=== PATIENT | male | born 1935 | race Caucasian/White ===

== ENCOUNTER 2018-11-09 18:52 | Inpatient (IN) | payer OTHER ==
[~2018-11-09] VITALS: Ht 177.8 cm; Wt 126.3 kg
[2018-11-09 18:52] VITALS: BP 97/52
[~2018-11-09 18:52] MED LIST: ASPIRIN 81 MG T81 MG NG; AVALIDE 150-121 EACH PO; CARDURA4 MG PO; COMBIGAN EYE DR10 ML OPHTHALMIC; NORCO 5-325 TA1 EACH PO; PERCOCET 7.5-51 EACH PO; SIMVASTATIN40 MG PO
[2018-11-09 19:18] LABS: URINE BLOOD NEGATIVE (Negative); URINE CLARITY CLEAR; URINE COLOR YELLOW; URINE GLUCOSE-RANDOM* NEGATIVE (Negative); URINE KETONES TRACE (Negative); URINE LEUKOCYTES-REFLEX NEGATIVE (Negative); URINE NITRITE-REFLEX NEGATIVE (Negative); URINE PROTEIN (DIPSTICK) 2+ (Negative); URINE SPECIFIC GRAVITY 1.025 (1.005-1.035); URINE UROBILINOGEN 0.2 E.U./dl (0.2-1.0)
[2018-11-09 19:20] LABS: ICTOTEST (BILI CONFIRMATORY) Negative (Negative); URINE BILIRUBIN NEGATIVE (Negative)
[2018-11-09 19:32] LABS: BACTERIA-REFLEX None Seen /HPF (None Seen); CRYSTALS None Seen /LPF (None Seen); HYALINE CASTS >10 Many /LPF (None Seen); MUCUS >6 Heavy strn/LPF (None Seen); SQUAMOUS None Seen /LPF (0-3); URINE RBC None Seen /HPF (0-2); URINE WBC-REFLEX 0-5 Rare /HPF (0-5)
[2018-11-09 19:41] LABS: CALCIUM 9.9 mg/dL (8.5-10.1); CREATININE 1.8 mg/dL (0.7-1.3); POTASSIUM 3.9 mmol/L (3.5-5.1)
[2018-11-09 19:47] LABS: ALBUMIN 3.9 g/dL (3.4-5.0); TOTAL BILIRUBIN 2.4 mg/dL (<0.1-1.0); TOTAL PROTEIN 8.1 g/dL (6.4-8.2)
[2018-11-09 19:58] LABS: HEMOGLOBIN 19.1 gm/dL (14.0-18.0); MCH 31.7 pg (26.0-34.0); MCV 93.1 fL (80.0-100.0); PLATELET COUNT 203 thou/uL (150-400); RBC 6.02 mil/uL (4.50-6.00); WBC 7.8 thou/uL (4.0-11.0)
[2018-11-09 20:25] LABS: ABSOLUTE NEUTROPHILS 6.2 thou/uL (1.4-8.2); ANISOCYTOSIS 1+; POLYCHROMASIA OCCASIONAL
--- NOTE | 2018-11-09 21:03 | NUR ---
PT'S SON HEADING HOME. CONTACT INFO: C: [phone] H: [phone]
[2018-11-09 23:45] VITALS: BP 164/78
[2018-11-10] VITALS: BP 193/69; BP 493/69
[2018-11-10 04:49] VITALS: BP 172/22
[2018-11-10 07:15] VITALS: BP 133/65
--- NOTE | 2018-11-10 07:32 | EKG ---
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: ELAINE : 1935 Requested By: Marko Pereira Order Number: [id number] MD: Guido Humphrey Measurements Intervals [place] Rate: 111 P: 64 NV: 196 QRS: 102 QRSD: 95 T: 18 QT: 383 QTc: 521 Interpretive Statements Sinus tachycardia Multiple premature complexes, vent & supraven Poor R wave progression Compared to ECG 06/17/2000 21:27:08 ventricular and supraventricular complexes are now present Electronically Signed On 11-10-2018 7:32:32 CDT by Guido Humphrey [email or web address] ��������������������������������������������� <ELECTRONICALLY SIGNED> ���������������������������������������� By: Guido Humphrey MD, [facility] ��������������������������������������������� 11/10/18 0732 48 48 Guido Humphrey MD, [facility] /EPI
--- NOTE | 2018-11-10 08:30 | NUR ---
PT ADMITTED TO ROOM 449 WITH SMALL BOWEL OBSTRUCTION, NO BS NOTED ABDOMEN DISTENDED SLIGHTLY FIRM. NG PLACED IN RIGHT NARE IN ED 1400 RETURN OF DARK GREEN BILE, TO FLOOR NG TO LIWS ANOTHER 950 ML'S THIS SHIFT. PT REPORTED HE HAD NOT VOIDED IN [address] CATHETER WITHOUT SUCCESS, 12 MAURITIAN COUDE CATHETER INSERTED WITH SOME DIFFICULTY BUT RETURN OF CLEAR DARK YELLOW URINE, BLADDER SCAN REVEALED 875 ML'S CHAKRABORTY DRAINING NOW. CONTINUE TO MONITOR.
--- NOTE | 2018-11-10 11:28 | NUR ---
Assess due to high nutritio screening risk trigger. Pt with SBO due to hernia. Poor intake 4 days prior admit with 5 lb wt loss. Now with NGT for suction. Otherwise well nourished. On ivf. If diet cannot advance in next 72hrs, recommend parenteral nutrition PPN vs TPN. Glucose level elevated 199 and A1C is pending. Low nutrition risk at this time but will continue to follow.
[2018-11-10 14:42] VITALS: BP 157/86
[2018-11-10 20:18] VITALS: BP 153/97
--- NOTE | 2018-11-10 20:23 | H ---
[facility] [place] [address] [place] [address] HISTORY AND PHYSICAL Name: SWETHA HART Room #: 449-I ADM IN ..#: [id number] Admission: 11/09/18 ������������������ Attend Phys: Hank Brewer MD Discharge: ������������������ Date of : 34 Report #: [id number] THIS REPORT FOR: //name// CC: Dr. Stas Brewer DATE OF SERVICE: 11/10/2018 CHIEF COMPLAINT: Vomiting x 4 days. HISTORY OF PRESENT ILLNESS: The patient is an 83-year-old white male, who contacted me on the date of admission with story that he had been vomiting for 4 days and was unable to keep anything down. I did strongly recommend he go to the Emergency Room for further evaluation and treatment, suspected that he needed to be admitted. The workup in the Emergency Room suggests at least a partial small-bowel obstruction likely due to a large umbilical hernia. I examined the patient the following morning and he had a nasogastric tube placed and has produced copious amounts of gastric green fluid as well as made him much more comfortable. Incidentally, he was also noted to be retaining urine in a large quantity in 700+ mL and a Bush catheter was placed which also helped relieve some of his discomfort. The patient reports that the symptoms began shortly after he ate a couple of broths from 11/04/2018, cookout, I believe. In any case, he began having problems with vomiting and could not keep either solids or liquids down. After 4 days, he decided to come in for further evaluation and treatment. It should be noted that the patient's has metastatic colon cancer and is a hospice patient at their home and he is very dedicated to her care. 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 He also has history of obesity, hypertension, osteoarthritis, benign prostate hypertrophy, glaucoma, and hyperlipidemia. He has a known umbilical/ventral hernia times many years. He has had hemorrhoid surgery 40 years ago. He had unspecified back surgery greater than 10 years ago. He has had arthroscopy on his right knee. MEDICATIONS: His medications at time of admission include doxazosin 4 mg by mouth nightly, aspirin 81 mg by mouth daily and brimonidine tartrate/timolol (Combigan eyedrops). He is currently not taking simvastatin 40 mg daily or irbesartan hydrochlorothiazide because of problems with tolerating the meds. ALLERGIES: He has no known drug allergies, however. SOCIAL HISTORY: He is retired, and father, nonsmoker, nondrinker, no other known vices. [address] [address] HISTORY AND PHYSICAL Name: SWETHA HART Room #: 449-I [facility] IN ..#: [id number] Admission: 11/09/18 ������������������ Attend Phys: Hank Brewer MD Discharge: ������������������ Date of : 34 Report #: [id number] FAMILY HISTORY: Significant for longevity and hypertension. REVIEW OF SYSTEMS: Reveals he does not have abdominal pain and that he has not had any urine production for the last 4 days. He denies shortness of breath or chest pain. He denies back pain. No new pain in the extremities. He is lightheaded when he gets up and the symptoms are all significantly abated since the placement of nasogastric tube to decompress the stomach and a Bush catheter to decompress his bladder. PHYSICAL EXAMINATION: VITAL SIGNS: In the Emergency Room showed a temperature of 36.1 degrees centigrade with a respiratory rate of 20 on room air, pulse oximetry of 94%, pulse was 120 beats per minute at that time and blood pressure was 97/52. There is a self-reported weight of 270 pounds. 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 He is able to swallow without food sticking. No palpable masses in the neck. No jugular venous distention or masses noted in the neck. He has fairly good range of motion in the neck. LUNGS: Fairly clear bilaterally. CARDIOVASCULAR: Reveals irregular rhythm without significant new murmur, gallop or rub. ABDOMEN: Soft. Bowel sounds are present, but diminished. There is a large ventral hernia in the area of the umbilicus. It is easily palpable. Bowel sounds are heard inside as well as outside the area of the hernia in the abdomen in general. (No recent bowel movements). EXTREMITIES: Without cyanosis or clubbing. Peripheral pulses are diminished, but palpable in all 4 distal extremities. 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 LABORATORY DATA AND DIAGNOSTIC STUDIES: Urinalysis in the Emergency Room shows 2+ protein, trace ketones and on microscopic no bacteria seen with mucus and hyaline casts noted and relatively otherwise normal microscopic sediment evaluation. EKG done in the Emergency Room shows a sinus tachycardia with a rate of 111 beats per minute, multiple premature complexes ventricular and supraventricular with poor R-wave progression. The ventricular and supraventricular complexes are new finding. Hematology shows white blood cell count of 7800 with a differential of 74% segs, 6% bands, 11% lymphocytes and 9% monocytes. The absolute neutrophil count was 6200, hemoglobin was 19.1 with hematocrit of 56.0 (note sludging risk), and the platelet count was 203,000 and normal. Microscopic showed 1+ anisocytosis and the RDW was normal at 14, MCV was 93.1 and also normal. Comprehensive metabolic panel in the Emergency Room shows sodium of 138, potassium of 3.9, chloride of 98, bicarbonate of 24, BUN of 30, creatinine 1.8 and anion gap was 16, upper limits of normal. The estimated GFR was 36, glucose 199. The AST was 35, the ALT was 17, both normal. Lipase was 57 and normal, total bilirubin was elevated at 2.4, calcium was 9.[address] [facility] [place] [address] [place] [address] HISTORY AND PHYSICAL Name: SWETHA HART Room #: 449-I [address]M IN [facility]#: [id number] Admission: 11/09/18 ������������������ Attend Phys: Hank Brewer MD Discharge: ������������������ Date of : 34 Report #: [id number] total protein of 8.1 and albumin normal at 3.9. Lactic acid done at 13 minutes after 8 p.m. last night was 3.2, the same day just before midnight it was 3.3 and this morning at 0701 hours it was 2.3 and diminishing. The patient had a CT scan of the abdomen and pelvis with oral contrast, the impression is as follows; "1. Large inferior midline abdominal wall hernia contains multiple small bowel loops. There is partial small-bowel obstruction associated with this hernia." 2. Multiple low density hepatic masses consistent with cysts. 3. Aortoiliac atherosclerosis. ASSESSMENT AND PLAN: 1. Intractable vomiting due to partial small-bowel obstruction (with a ventral hernia) - I recommend the patient be followed by General employee relations consultant as well. I do not feel he needs surgery at this time because of the lack of pain and fever, although the elevated bands and mild left shift on the white blood cell count bears close watching. The patient has a nasogastric tube to wall suction and I think this is an excellent idea to keep him from vomiting or aspirating and keep him comfortable until the bowel obstruction clears. Dr. Mcclelland has been consulted from the Emergency Room and I will await to hear his recommendations as well. 2. Bladder outlet obstruction, presumably due to benign prostate hypertrophy. We will continue alpha isabel therapy. The patient may need his prostate situation addressed by urologist at a later date. 3. Ventral hernia - I think this problem likely needs to be addressed surgically, but not necessarily urgently. I would very much like to speak with Dr. Mcclelland once he has had a chance to evaluate the patient personally. The patient's social situation, caring for a with a terminal disease will certainly color decision making for this patient at this time. 4. Hypertension. We will continue current medications and adjust as needed. He may benefit from increased dose of alpha isabel or a more potent one, but we will need to rehydrate him aggressively prior to addressing this, Bush catheter should stay in for right now. 5. History of laryngeal carcinoma without evidence of recurrence. 6. Glaucoma. Continue current medications. 7. Obesity - Weight loss program will certainly be in order when he is better able to restrict his diet and that can be addressed at a later date. ��������������������������������������������� <ELECTRONICALLY SIGNED> ���������������������������������������� By: Hank Brewer MD ��������������������������������������������� 11/10/183 1323 1509 Hank Brewer MD /nt
--- NOTE | 2018-11-10 20:36 | NUR ---
PT A&OX4, VSS, PAIN IN ABDOMEN MANAGED WITH PAIN. PATIENT WILL HAVE SURGERY IN THE MORNING OF 11/11/18. PATIENT IS NPO, FLUIDS RUNNING, NO SIGNS OF DISTRESS. SON AT BEDSIDE THIS MORNING. PATIENT HAS NG TUBE AND COUDE CHAKRABORTY IN PLACE. WILL CONTINUE TO MONITOR.
[2018-11-11] VITALS (7 sets, daily range): BP systolic 113–167; BP diastolic 59–97
[2018-11-11 00:10] LABS: GLYCOHEMOGLOBIN (HGB A1C) 5.6 % (4.8-5.6)
[2018-11-11 05:59] LABS: HEMATOCRIT 51.5 % (42.0-52.0); HEMOGLOBIN 17.2 gm/dL (14.0-18.0); MCH 31.4 pg (26.0-34.0); MCHC 33.4 g/dL (28.0-37.0); MCV 94.1 fL (80.0-100.0); PLATELET COUNT 152 thou/uL (150-400); RBC 5.47 mil/uL (4.50-6.00); RDW 14.1 % (10.5-14.5); WBC 4.5 thou/uL (4.0-11.0)
[2018-11-11 06:15] LABS: ALBUMIN 3.3 g/dL (3.4-5.0); CALCIUM 9.1 mg/dL (8.5-10.1); CREATININE 1.2 mg/dL (0.7-1.3); POTASSIUM 3.4 mmol/L (3.5-5.1); TOTAL BILIRUBIN 1.3 mg/dL (<0.1-1.0); TOTAL PROTEIN 6.8 g/dL (6.4-8.2)
[2018-11-11 06:38] LABS: ABSOLUTE NEUTROPHILS 2.9 thou/uL (1.4-8.2)
[2018-11-11 06:39] LABS: LARGE PLATELETS FEW; PLATELET ESTIMATE NORMAL
--- NOTE | 2018-11-11 08:12 | NUR ---
PROGRESS PT A/O X4 NG TO RIGHT NARE TO LIWS INTACT DRAINING DARK GREEN FLUID, ABDOMEN DISTENDED SLIGHTLY FIRM WITH ABSENT BS. PT DENIES FLATUS AND NO BELCHING NOTED, REPORTED SLIGHT NAUSEA. PAIN CONTROLLED WITH IV MORPHINE TAKING SPARINGLY. CHAKRABORTY INTACT DRAINING JACEY URINE. PLAN TO HAVE HERNIA REPAIR AND SBO REPAIRED. PT IS AN ADD ON SURGERY SO TIME IS YET TO BE DETERMINED PT AWARE.
--- NOTE | 2018-11-11 13:02 | NUR ---
INITIAL ASSESSMENT: SW reviewed chart and spoke with nursing. Pt was admitted from home due to SBO. Pt has NG tube in place and is scheduled to have surgery today. SW met with pt and son at bedside. Introduced role of SW. Pt is alert/orientated x 4. Pt reports he lives at home. Prior to admission, pt was independent with ADLs. Pt has 6 steps to into the main level of the home and 6 steps up to the bedroom level. No hx of services. Pt's PCP is Dr. Hank Brewer. SW is following to assist as needed with discharge planning.
--- NOTE | 2018-11-11 20:15 | NUR ---
PT A&OX4, VSS, DENIES PAIN. PATIENT C/O OF NAUSEA TODAY, ZOFRAN GIVEN. PATIENT HAD BM TODAY, UP TO BEDSIDE COMMODE, STEADY ON FEET. PATIENT WENT DOWN FOR SURGERY APPROX 1600. NO SIGNS OF DISTRESS PREVIOUSLY. SON AT BEDSIDE, WILL CONTINUE TO MONITOR.
--- NOTE | 2018-11-11 22:59 | NUR ---
pt pulled out ng and got oob unassisted, lower abdominal incision was bleeding slightly, no open areas noted, call to to notify of situation order to leave ng tube out and cover incision with abd pad. start clear liquids.
--- NOTE | 2018-11-11 23:43 | NUR ---
progress pt vss, lethargic from surgery ng pulled out in his sleep notified and order to leave out and start clear liquids obtained. pt updated on plan of care.
[2018-11-12] VITALS (42 sets, daily range): BP systolic 84–178; BP diastolic 39–109
[2018-11-12 05:40] LABS: HEMATOCRIT 43.2 % (42.0-52.0); HEMOGLOBIN 14.4 gm/dL (14.0-18.0); MCH 31.5 pg (26.0-34.0); MCHC 33.5 g/dL (28.0-37.0); MCV 94.2 fL (80.0-100.0); PLATELET COUNT 213 thou/uL (150-400); RBC 4.58 mil/uL (4.50-6.00); RDW 13.8 % (10.5-14.5); WBC 8.1 thou/uL (4.0-11.0)
[2018-11-12 06:01] LABS: ANION GAP 12 mmol/L (7-16); BUN 43 mg/dL (7-18); CALCIUM 8.5 mg/dL (8.5-10.1); CHLORIDE 104 mmol/L (98-107); CO2 26 mmol/L (21-32); CREATININE 2.1 mg/dL (0.7-1.3); GLUCOSE 171 mg/dL (74-106); POTASSIUM 3.5 mmol/L (3.5-5.1); SODIUM 142 mmol/L (136-145)
[2018-11-12 06:10] LABS: BE(vivo) -0.8 mmol/L (-2 to +3); HCO3 23.1 mmol/L (22.0-26.0); PO2 86.1 mmHg (80.0-100.0); pH 7.425 (7.360-7.450); sO2 96.8 % (92.0-98.0)
[2018-11-12 06:10] LABS: TROPONIN-I <0.06 ng/mL (<0.06)
[2018-11-12 06:18] LABS: ABSOLUTE NEUTROPHILS 6.6 thou/uL (1.4-8.2)
[2018-11-12 06:19] LABS: PLATELET ESTIMATE NORMAL
--- NOTE | 2018-11-12 07:25 | NUR ---
Assumed care at 2245. Pt resting in bed. AXO3. Pt on 6L of [address]. Pt had a drop of blood pressure when l was assessing to give pain medication. Notified Dr. Brewer who order stat EKG, CXR, Troponin and BNP. Notified MD of the EKG results. MD arrived on unit and added additional order. Orders in place for transfer. Gave report to ICU nurse. Pt has been transfered.
--- NOTE | 2018-11-12 07:28 | NUR ---
PATIENT TRANSFERRED TO ICU FROM FOR HYPOTENSION AND TACHYCARDIA. PATIENT ARRIVED TO THE UNIT AT 0630. RECEIVED ORDERS FROM DR HILL TO INITIATE SEPSIS PROTOCOL AND ORDERS FOR PULMONARY, RENAL, AND CARDIOLOGY CONSULTS. ALL CONSULTS CALLED. DR. HILL IS AT BEDSIDE. STATUS CHANGED FROM FULL CODE TO NO CODE.
[2018-11-12 07:29] LABS: APTT 24.9 Seconds (24.5-32.8); FIBRINOGEN 321.1 mg/dL (210-360); INR 1.1; PROTIME 11.2 Seconds (9.3-11.4)
--- NOTE | 2018-11-12 07:31 | EKG ---
[place] [address] [address] [facility] [place] [address] ELECTROCARDIOGRAM REPORT Name: SWETHA HART Room #: 244-P ADM IN M.R.#: [id number] ������������������ Admission: 11/09/18 ������������������ Attend Phys: Hank Brewer MD Discharge: ������������������ Date of : 34 Report #: [id number] ����������������������������������������������������������������� [id number] THIS REPORT FOR: //name// [facility] Test Date: 2018-11-12 Test Time: 05:12:18 Pat Name: SWETHA HART Department: Room: [facility] Gender: M Drink Mixer: ELAINE : 1935 Requested By: Hank Brewer Order Number: [id number] MD: Guido Humphrey Measurements Intervals [place] Rate: 120 P: 54 [place]: 157 QRS: 28 QRSD: 89 T: -7 QT: 325 QTc: 460 Interpretive Statements Sinus tachycardia Atrial premature complex Poor R wave progression Nonspecific ST segment abnormality Compared to ECG 11/09/2018 19:49:40 Premature ventricular complexes are no longer present Electronically Signed On 11-12-2018 7:31:51 CDT by Guido Humphrey [email or web address] ��������������������������������������������� <ELECTRONICALLY SIGNED> ���������������������������������������� By: Guido Humphrey MD, [facility] ��������������������������������������������� 11/12/18 0731 1 1 Guido Humphrey MD, [facility] /EPI
--- NOTE | 2018-11-12 11:25 | 2DMMODE ---
[facility] [place] [address] 2 D/M-MODE ECHOCARDIOGRAM Name: SWETHA HART Room #: 244-P [facility] IN ..#: [id number] ������������� Admission: 11/09/18 ������������� Attend Phys: Hank Brewer MD Discharge: ��� ������������� ��� Date of : 33 Date of Service: 11/12/18 1125 �� Report #: [id number] �������� ��������������������������������������������[id number] THIS REPORT FOR: //name// APPROVED REPORT Study performed: 11/12/2018 10:26:09 EXAM: Comprehensive 2D, Doppler, and color-flow Echocardiogram Patient Location: ICU Room #: [facility] Status: routine BSA: 2.36 HR: 114 bpm BP: 97/56 mmHg Rhythm: Tachycardia/Irregular Other Information Study Quality: Fair Technically limited study due to morbid obesity. Indications Hypotensive, tachycardia, hypoxia. Echo Enhancing Agent Indication: Endocardial border delineation Agent(s) / Amount(s) Used: Optison 3 cc 2D Dimensions RVDd: 36.86 mm IVSd: 17.90 (7-11mm) LVOT Diam: 21.90 (18-24mm) LVDd: 35.91 mm PWd: 12.71 (7-11mm) Ascending Ao: 35.52 (22-36mm) LVDs: 26.38 (25-40mm) Aortic Root: 35.80 mm Volumes Left Atrial Volume (Systole) Single Plane 4CH: 49.08 mL Single Plane 2CH: 49.12 mL LA ESV Index: 22.00 mL/m2 Aortic Valve AoV Peak Nhan.: 2.68 m/s AO Peak Gr.: 28.76 mmHg AO Mean Gr.: 16.81 mmHg [facility] [address] [address] 2 D/M-MODE ECHOCARDIOGRAM Name: PAULSILVIASWETHA Room #: 244-P [facility] IN [facility]#: [id number] ������������� Admission: 11/09/18 ������������� Attend Phys: Hank Brewer MD Discharge: ��� ������������� ��� Date of : 33 Date of Service: 11/12/18 1125 �� Report #: [id number] �������� ��������������������������������������������[id number] AO V2 Mean: 1.97 m/s AO V2 VTI: 35.50 cm Mitral Valve E/A Ratio: 0.6 MV Decel. Time: 226.58 ms MV E Max Nhan.: 0.49 m/s MV A Nhan.: 0.78 m/s MV PHT: 65.71 ms IVRT: 65.74 ms Pulmonary Valve PV Peak Nhan.: 1.12 m/s PV Peak Gr.: 5.06 mmHg Pulmonary Vein P Vein S: 0.58 m/s P Vein D: 0.38 m/s P Vein S/D Ratio: 1.53 Tricuspid Valve TR Peak Nhan.: 3.08 m/s RAP Estimate: 5.00 mmHg TR Peak Gr.: 37.82 mmHg PA Pressure: 44.00 mmHg Left Ventricle The left ventricle is normal size. There is normal LV segmental wall motion. Severe septal hypertrophy is present. Left ventricular systolic function is hyperdynamic. LVEF is 65-70%. Mild diastolic dysfunction is present (impaired relaxation pattern). Right Ventricle The right ventricle is normal size. The right ventricular systolic function is normal. Atria The left atrium size is normal. The right atrium size is normal. Aortic Valve Aortic valve is moderately calcified. No aortic regurgitation is present. Mild aortic stenosis. Peak pressure gradient of 30mmHg and mean of 17mmHg. Mitral Valve The mitral valve is normal in structure. Mild mitral annular calcification. Mild mitral regurgitation. [facility] [address] [place] [address] 2 D/M-MODE ECHOCARDIOGRAM Name: SWETHA HART Room #: 244-P [facility] IN ..#: [id number] ������������� Admission: 11/09/18 ������������� Attend Phys: Hank Brewer MD Discharge: ��� ������������� ��� Date of : 33 Date of Service: 11/12/18 1125 �� Report #: [id number] �������� ��������������������������������������������[id number] Tricuspid Valve The tricuspid valve is normal in structure. Trace tricuspid regurgitation. Estimated PAP is 45mmHg. Pulmonic Valve Pulmonic valve is not well visualized. Trace pulmonic regurgitation. Great Vessels The aortic root is normal in size. The ascending aorta is normal in size. IVC is normal in size and collapses >50% with inspiration. Pericardium There is no pericardial effusion. <Conclusion> The left ventricle is normal size. LVEF is 65-70%. Aortic valve is moderately calcified. Mild aortic stenosis. Peak pressure gradient of 30mmHg and mean of 17mmHg. The mitral valve is normal in structure. Mild mitral annular calcification. Mild mitral regurgitation. The tricuspid valve is normal in structure. Trace tricuspid regurgitation. Estimated PAP is 45mmHg. Pulmonic valve is not well visualized. Trace pulmonic regurgitation. There is no pericardial effusion. ��������������������������������������������� <ELECTRONICALLY SIGNED> ���������������������������������������� By: Maxime Hilton MD ��������������������������������������������� 11/12/18 1125 1125 1125 Maxime Hilton MD /INF
--- NOTE | 2018-11-12 11:51 | NUR ---
CONSULTED TO PLACE A PICC FOR A PATIENT ADMITTED TO THE ICU. ORDER AND CONSENT NOTED. THE PROCEDURE, BENIFITS AND RISKS FOR DVT AND INFECTION DISCUSSED WITH THE PATIENT AND HE VERBALIZED UNDERSTANDING. THE RUE BASILIC WAS WIDLEY PATENT. LINE WAS PLACED AFTER A BEDSIDE TIMEOUT WAS COMPLETED PER HOSPITAL POLICY. LINE WAS TRIMMED TO 52CM AND ADVANCED WITHOUT DIFFICULTY. A STAT CHEST XRAY WAS ORDERED FOR CONFIRMATION
[2018-11-12 13:19] LABS: URINE BLOOD NEGATIVE (Negative); URINE GLUCOSE-RANDOM* NEGATIVE (Negative); URINE KETONES TRACE (Negative); URINE LEUKOCYTES-REFLEX NEGATIVE (Negative); URINE NITRITE-REFLEX NEGATIVE (Negative); URINE PROTEIN (DIPSTICK) 2+ (Negative); URINE SPECIFIC GRAVITY 1.025 (1.005-1.035); URINE UROBILINOGEN 0.2 E.U./dl (0.2-1.0)
[2018-11-12 13:20] LABS: URINE CLARITY HAZY; URINE COLOR AMBER
[2018-11-12 13:23] LABS: ICTOTEST (BILI CONFIRMATORY) Negative (Negative); URINE BILIRUBIN NEGATIVE (Negative)
[2018-11-12 13:32] LABS: FINE GRANULAR CASTS 0-3 Few /LPF (None Seen); HYALINE CASTS 4-10 Moderate /LPF (None Seen)
[2018-11-12 13:33] LABS: BACTERIA-REFLEX 1-9 Few /HPF (None Seen); URINE RBC None Seen /HPF (0-2); URINE WBC-REFLEX 0-5 Rare /HPF (0-5)
[2018-11-12 13:34] LABS: SQUAMOUS None Seen /LPF (0-3)
--- NOTE | 2018-11-12 13:41 | NUR ---
AAOX4 PLEASANT AND COOPERTIVE. MORPHINE GIVEN FOR C/O ABD PAIN. LAP SITES CLEAN AND DRY LOWER ABD INCISION DRY AND OPEN TO AIR. NO EDEMA. SKIN INTACT. TRIPLE LUMEN PICC INSERTED RIGHT UPPER ARM. CHAKRABORTY TO DD WITH CLEAR YELLOW URINE OUTPUT. O2 AT 45% TRACH SHIELD.
[2018-11-12 14:35] LABS: CRYSTALS None Seen /LPF (None Seen)
--- NOTE | 2018-11-12 17:20 | NUR ---
Message rec'd to contact son Lux regarding care needs and dc planning for the pt. Pt remains in ICU but progressing. Nursing reports he is sba for transfers and steady on his feet. O2 per michael yip (old trach x many years). Message left for Lux and cm numbers provided for f/u on Thursday. Will reassess for dc needs after the weekend. The pt's spouse is at home with hospice services. Will ask the care team to order therapy evals if needed and follow along should home o2 be indicated.
[2018-11-13] VITALS (10 sets, daily range): BP systolic 128–163; BP diastolic 65–90
[2018-11-13 06:12] LABS: HEMATOCRIT 32.6 % (42.0-52.0); MCH 31.7 pg (26.0-34.0); MCHC 33.9 g/dL (28.0-37.0); MCV 93.5 fL (80.0-100.0); RBC 3.49 mil/uL (4.50-6.00); RDW 13.5 % (10.5-14.5); WBC 7.2 thou/uL (4.0-11.0)
[2018-11-13 06:13] LABS: HEMOGLOBIN 11.1 gm/dL (14.0-18.0); PLATELET COUNT 137 thou/uL (150-400)
[2018-11-13 06:21] LABS: ALBUMIN 2.3 g/dL (3.4-5.0); CALCIUM 7.5 mg/dL (8.5-10.1); CREATININE 2.3 mg/dL (0.7-1.3); PHOSPHORUS 3.7 mg/dL (2.5-4.9); POTASSIUM 3.1 mmol/L (3.5-5.1); TOTAL BILIRUBIN 1.8 mg/dL (<0.1-1.0); TOTAL PROTEIN 5.3 g/dL (6.4-8.2)
--- NOTE | 2018-11-13 06:39 | NUR ---
RECEIVED REPORT FROM [facility] AND ASSUMED PATIENT CARE AT 1900. PATIENT IS AAOX4 AND NOTED TO HAVE A TRACH COLLAR. VITAL SIGNS REMAINED STABLE DURING THIS SHIFT AND NO ACUTE EVENTS OCCURRED. PATIENT GAVE A THUMBS UP EACH TIME PAIN WAS ASSESSED. PATIENT IS DOING VERY WELL AND CAN POSSIBLY BE TRANSFERRED OUT OF THE ICU.
[2018-11-13 06:49] LABS: ABSOLUTE NEUTROPHILS 5.2 thou/uL (1.4-8.2); ANISOCYTOSIS 1+
--- NOTE | 2018-11-13 13:23 | HC ---
[facility] [place] [address] CONSULTATION Name: SWETHA HART Room #: 244-P [facility] IN .R.#: [id number] Admission: 11/09/18 ������������������ Attend Phys: Hank Brewer MD Discharge: ������������������ Date of : 34 Report #: [id number] THIS REPORT FOR: //name// CC: Hank Brewer TYPE OF REPORT: Pulmonary consultation. REFERRING PHYSICIAN: Hank Brewer M.D. REASON FOR REFERRAL: Postop hypoxia and hypotension. HISTORY OF PRESENT ILLNESS: The patient is an 83-year-old white male who is status post laparoscopic repair of a large umbilical hernia along with lysis of adhesions yesterday. Early this morning, the patient was found to be mildly hypotensive and hypoxic. A Pulmonary consultation was requested. The patient was admitted on 11/09/2018 with nausea and vomiting. He was found to have acute kidney injury along with incarcerated hernia. I could not review the anesthesia records. However, the patient surgery went fairly uneventful. This morning was found to be mildly hypotensive and dyspneic. When he was transferred to the ICU, blood pressure did of the promptly improved to more than 100 mmHg systolic. Currently, denies any dyspnea, chest pain or productive cough. A V/Q scan was performed showing normal perfusion scan. Otherwise, the patient denies any past history of chronic lung disease. 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 PAST MEDICAL HISTORY: As mentioned above including hypertension, benign prostatic hypertrophy and laryngeal cancer undergoing laryngectomy. The patient can still communicate to some degree. PAST SURGICAL HISTORY: As mentioned above including hemorrhoidectomy, prior back surgery and arthroscopic surgery. ALLERGIES: None. CURRENT MEDICATIONS: Reviewed in the MAR, which include Lovenox, Pepcid, insulin supplements, morphine, Zosyn, vancomycin and lactated Ringer's. FAMILY HISTORY: Noncontributory. SOCIAL HISTORY: The patient is . Denies any tobacco or alcohol use. [facility] [address] [place] [address] CONSULTATION Name: SWETHA HART Room #: 244-P [facility] IN [facility]#: [id number] Admission: 11/09/18 ������������������ Attend Phys: Hank Brewer MD Discharge: ������������������ Date of : 34 Report #: [id number] REVIEW OF SYSTEMS: As mentioned above, otherwise 10-point system review negative. PHYSICAL EXAMINATION: GENERAL: He is awake and alert, in no distress. VITAL SIGNS: Temperature is 98.7 degrees Fahrenheit, pulse is 190, respiratory rate is 20, blood pressure is 130/70 mmHg and saturation 93%. HEENT: Normocephalic and atraumatic. NECK: Supple, without any lymphadenopathy or thyromegaly. CHEST: Breath sounds are fair due to poor effort, decreased in the bases. A few scattered crackles. CARDIOVASCULAR: Normal S1 and S2. There are no murmurs or gallop. There is no JVD. There is no carotid bruit. Pulses are 2+/4+ bilaterally. ABDOMEN: Soft and nontender. No organomegaly or masses felt. GENITOURINARY: Deferred. RECTAL: Deferred. EXTREMITIES: There is no edema, cyanosis or clubbing. RADIOLOGICAL DATA: Portable chest x-ray shows small lung volumes, possible mild right lower lobe atelectasis, inspiratory effort is poor, central line is in place and the tip is at the right atrium. Mildly increased bowel gas pattern is noted. Echocardiogram was grossly unremarkable except for mild aortic stenosis, mild mitral regurgitation, pulmonary artery pressure measuring 45 mmHg. EKG shows sinus tachycardia, otherwise no acute changes. CT abdomen and pelvis revealed a large inferior midline abdominal wall hernia containing multiple small bowel loops with partial small-bowel obstruction. LABORATORY DATA: Troponin is normal. C-reactive protein is 52. Lactic acid was 2.3. D-dimer was 1.7. Sodium 142, potassium 3.5, chloride 102, CO2 of 26, BUN is 43 and creatinine is 2.1. Liver enzymes are grossly unremarkable. WBC 8100, hemoglobin is 14.4 and platelets normal. No obvious evidence of bandemia. Arterial blood gas revealed pH 7.42, pCO2 of 36 and pO2 86 on FiO2 of 35%. IMPRESSION: 1. Acute hypoxic respiratory failure and mild hypotension in this 83-year-old white male status post laparoscopic surgery. His ventilation perfusion scan showed normal perfusion scan. Chest x-ray shows small lung volumes. There is moderate intraabdominal gas pattern noted. Etiology is probably related to bibasilar atelectasis. Pulmonary embolus is felt to be less likely. Early sepsis cannot be ruled out. 2. Mild hypotension, may be related to systemic inflammatory response syndrome related to surgery, however, cannot rule out infection. Agree with broad-spectrum antibiotics. 3. Status post laparoscopic repair of a large umbilical hernia, lysis of [address] [address] CONSULTATION Name: SWETHA HART Room #: 244-P [facility] IN M.R.#: [id number] Admission: 11/09/18 ������������������ Attend Phys: Hank Brewer MD Discharge: ������������������ Date of : 34 Report #: [id number] adhesions and status post umbilicoplasty. 4. Acute kidney injury related to the above. 5. Hypertension. 6. Glaucoma. 7. History of laryngeal cancer in 1951 status post laryngectomy. RECOMMENDATIONS: Agree with broad-spectrum antibiotics. Incentive spirometry regarding atelectasis. Wean O2 for saturation 90%. DVT prophylaxis is recommended. Thank you for this consultation. We will follow closely. ��������������������������������������������� <ELECTRONICALLY SIGNED> ���������������������������������������� By: Wan Barry MD ��������������������������������������������� 11/13/18 1323 1626 0124 Wan Barry MD /nt
[2018-11-13 17:01] LABS: APTT 25.9 Seconds (24.5-32.8); D-DIMER 4.67 ug/mLFEU (0.19-0.50); FIBRINOGEN 492.1 mg/dL (210-360); INR 1.1; PROTIME 11.7 Seconds (9.3-11.4)
--- NOTE | 2018-11-13 19:15 | NUR ---
NOTED SCANT BLEEDING FROM L ABD LAP SITE, STITCH IN PLACE. BRUISING SLIGHTLY WORSE ON BOTH L ABD LAP SITES- MARKED BORDER OF BRUISING/HEMATOMA. NOTIFIED DR. GAMBOA AND DR. ISAEL SOLIZ. LABS DRAWN. AT 181, PT TO CT PER WHEELCHAIR WITH MONITOR, THEN RETURNED AT 1840. PT PREFERRED TO SIT IN CHAIR AND REQUESTED TO BE SUCTIONED PER STOMA. SUCTION OBTAINING SCANT BROWN SECRETIONS, THEN PALE YELLOW THICK SECRETIONS. WELL TOLERATED. DENIED PAIN, ST, TAKING DEEP BREATHS AND COUGH WITH LUNGS LESS DIMINISHED THROUGHOUT THE SHIFT. INTAKE INCLUDED SMALL AMOUNT OF APPLE JUICE AND HE PREFERRED WATER. HYPOACTIVE BOWEL SOUNDS, ABD ROUNDED, DISTENDED, CHAKRABORTY WITH ADEQUATE URINE OUTPUT. PROGRESSING.
[2018-11-14] VITALS (20 sets, daily range): BP systolic 134–176; BP diastolic 46–100
--- NOTE | 2018-11-14 04:28 | NUR ---
ASSUMED CARE OF PT. AT 1900. PT. IS A&OX4, PLEASANT AND CALM. DENIES PAIN, BUT STOMACH IS SENSITIVE TO TOUCH. ABDOMINAL DRESSING REMOVED AND STERI-STRIPS PUT IN PLACE. DR. SANDERSON CALLED TO INFORM OF ABDOMINAL CT AND INCREASED SIZE OF HEMATOMA ON ABDOMEN, NO ORDERS RECEIVED. OUTLINES OF HEMATOMA WITH TIMES DONE WITH SHARPIE ON ABDOMEN. PICTURE OF INCISION TAKEN. HYDRALIZINE GIVEN X1 FOR HTN. X1 SMALL BM. PT. RESTLESS THROUGHOUT THE NIGHT AND MOVED TO CHAIR FOR COMFORT. ASSESSMENTS AND VITAL SIGNS CHARTED. PT. IS PROGRESSING TOWARDS GOALS. WILL CONTINUE TO MONITOR.
[2018-11-14 06:08] LABS: HEMATOCRIT 31.9 % (42.0-52.0); MCH 32.1 pg (26.0-34.0); MCHC 34.6 g/dL (28.0-37.0); MCV 92.7 fL (80.0-100.0); RBC 3.44 mil/uL (4.50-6.00); RDW 13.5 % (10.5-14.5); WBC 6.6 thou/uL (4.0-11.0)
[2018-11-14 06:24] LABS: ALBUMIN 2.1 g/dL (3.4-5.0); PHOSPHORUS 2.4 mg/dL (2.5-4.9); POTASSIUM 3.2 mmol/L (3.5-5.1)
[2018-11-14 06:27] LABS: CREATININE 1.3 mg/dL (0.7-1.3)
--- NOTE | 2018-11-14 09:59 | EKG ---
[address] [place] [address] ELECTROCARDIOGRAM REPORT Name: TANNERSWETHA Ryan Room #: 244-P ADM IN M.R.#: [id number] ������������������ Admission: 11/09/18 ������������������ Attend Phys: Hank Brewer MD Discharge: ������������������ Date of : 34 Report #: [id number] ����������������������������������������������������������������� [id number] THIS REPORT FOR: //name// [facility] Test Date: 2018-11-14 Test Time: 07:22:02 Pat Name: SWETHA HART Department: Room: 244 P Gender: M Bun Panner: [email or web address] : 1935 Requested By: Guido Humphrey Order Number: [id number] MD: Guido Humphrey Measurements Intervals [place] Rate: 107 P: 58 WA: 202 QRS: 72 QRSD: 97 T: -17 QT: 343 QTc: 458 Interpretive Statements Sinus tachycardia with atrial premature complexes Nonspecific ST and T wave abnormality Poor R wave progression Compared to ECG 11/12/2018 05:12:18 No significant change was found Electronically Signed On 11-14-2018 9:59:31 CDT by Giudo Humphrey [email or web address] ��������������������������������������������� <ELECTRONICALLY SIGNED> ���������������������������������������� By: Guido Humphrey MD, [facility] ��������������������������������������������� 11/14/18 0959 1 1 Guido Humphrey MD, [facility] /EPI
--- NOTE | 2018-11-14 18:49 | NUR ---
PT ARRIVED APPROX 184 ACCOMPANIED BY ICU STAFF, VS TAKEN ON BOARD, FOOD TRAY IN FRONT OF PT, ENALAPRIL AND ABX RUNNING, GAVE PT PAPER, PEN, AND CLIPBOARD FOR COMMUNICATION ALTHOUGH HE SEEMS TO COMMUNICATE FAIRLY CLEARLY. EXPRESSED CONCERN ABOUT HIS (REPORTS OF ON HOSPICE AND AT HOME) AND ICU NURSE ASSURED HIM. 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 ENCOURAGED HIM TO USE CALL LIGHT FOR ANY NEEDS. TELE MONITORED
--- NOTE | 2018-11-14 19:04 | NUR ---
PATIENT ASSESMENT AND INTERVENTIONS DOCUMENTED. PATIENT A&O X4. PATIENT WAS UP IN CHAIR MOST OF THE DAY. TOLERATING CLEAR LIQUIDS. AMBULATING TO BEDSIDE COMMOMODE WITH 1 ASSIST. TRACH SHIELF TO TRACHEOTOMY @ 35%. O2 SAT 94% OG GREATER. DIET ADVANCED TO REGULAR DIET. HEMOTOMA TO THE ABD NOTED. PHYSICIAN AWARE. PATIENT WAS TRANSFERRED TO CCU 201. REPORT CALLED TO RN. NO FURTHER CONCERNS.
[2018-11-15 00:27] VITALS: BP 161/77
--- NOTE | 2018-11-15 04:42 | NUR ---
RECEIVED PT'S CARE AT 1935; PT. IN RESTROOM; AOX4; DURING ASSESSMENT NO C/O PAIN; EDUCATED ABOUT CALLING BEFORE STANDING UP FROM CHAIR; ST. UNDERSTANDING; HS SCHEDULED MEDICATION GIVEN; EDUCATED ABOUT GOALS; ST. UNDERSTANDING; EARLY ON THE NIGHT REQUEST TO GO TO BED; CLOSE TO MIDNIGHT REQUESTED TO BE BACK ON CHAIR; O2 SAT ABOVE 90%; ABLE TO REST THROUGH THE NIGHT WITH EYES CLOSED; ASSESSMENT CHARGED; FOLLOWING POC; MONITORING; WILL PASS ON REPORT;
[2018-11-15 05:20] LABS: HEMATOCRIT 30.8 % (42.0-52.0); HEMOGLOBIN 10.6 gm/dL (14.0-18.0); MCH 31.9 pg (26.0-34.0); MCHC 34.4 g/dL (28.0-37.0); MCV 92.6 fL (80.0-100.0); RBC 3.32 mil/uL (4.50-6.00); RDW 13.4 % (10.5-14.5)
[2018-11-15 05:31] VITALS: BP 154/83
[2018-11-15 05:37] LABS: CALCIUM 8.2 mg/dL (8.5-10.1); POTASSIUM 3.5 mmol/L (3.5-5.1)
[2018-11-15 07:18] VITALS: BP 185/82
--- NOTE | 2018-11-15 09:24 | HC ---
[facility] [place] [address] [place] [address] CONSULTATION Name: SWETHA HART Room #: 201-P [facility] IN M.R.#: [id number] Admission: 11/09/18 ������������������ Attend Phys: Hank Brewer MD Discharge: ������������������ Date of : 34 Report #: [id number] THIS REPORT FOR: //name// CC: Hank Brewer DATE OF SERVICE: 11/12/2018 ATTENDING PHYSICIAN: Dr. Hank Brewer. REASON FOR CONSULTATION: Bandemia, leukocytosis, lactic acidosis, hypotension, possible sepsis. HISTORY OF PRESENT ILLNESS: The patient is an 83-year-old white man admitted through the Emergency Room with history of nausea and vomiting of 4 days' duration. He is found by CT scan of abdomen and pelvis to have an incarcerated umbilical abdominal wall hernia. He undergoes evaluation and surgical intervention by Dr. Stas Ferrer on 11/11 a laparoscopic repair of large umbilical hernia, lysis of adhesions and umbilicoplasty. The patient is currently in the intensive care unit. 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 Nicole . The patient is alert, comfortable. He is obviously having abdominal wall pain. The patient had been started on combination of vancomycin and Zosyn. DRUG ALLERGIES: None listed. MEDICATIONS: The patient is on treatment with Zosyn 3.375 grams IV every 8 hours started today, p.r.n. glucose, glucagon, insulin drip, p.r.n. epinephrine, vasopressin, norepinephrine, vancomycin 1000 mg IV daily, subcutaneous enoxaparin, intravenous normal saline at 1000 mL an hour, p.r.n. hydralazine IV 10 mg every 6 hours, p.r.n. ondansetron, p.r.n. morphine sulfate. PAST MEDICAL HISTORY: 1. Laryngeal squamous cell carcinoma resected in 1963. 2. Obesity. 3. Hypertension. 4. Benign prostatic hypertrophy. 5. Glaucoma. 6. Dyslipidemia. 7. Known to have umbilical hernia for many years. 8. Previous hemorrhoid surgery. 9. Back surgery some 10 years ago. 10. Right knee arthroscopy. SOCIAL HISTORY: See H and P. FAMILY HISTORY: See H and P. [facility] [address] [place] [address] CONSULTATION Name: SWETHA HART Room #: 201-P [facility] IN [facility].#: [id number] Admission: 11/09/18 ������������������ Attend Phys: Hank Brewer MD Discharge: ������������������ Date of : 34 Report #: [id number] REVIEW OF SYSTEMS: As above and see H and P. PHYSICAL EXAMINATION: GENERAL: A well-developed man in mild distress. VITAL SIGNS: Temperature maximum 99.4, BP as low as 84/39 on 11/12/2018 at 4:43 a.m. Tachycardic pulse 118, respirations 18. Intake 1445, output 2200. O2 saturation 94% on FiO2 of tracheal shield 10 liters per minute, O2 saturation was within range on room air prior to these acute events. HEENMT: Within normal range. NECK: Chronic laryngeal ostomy with tracheal shield. LUNGS: Clear to auscultation. HEART: S1, S2. No gallop or murmur. ABDOMEN: With transverse umbilical area surgical wound. Abdomen tender as one might expect after surgical intervention. Bowel sounds decreased. GENITALIA AND RECTAL: Deferred. EXTREMITIES: Cold feet. I could not palpate peripheral pulses. NEUROLOGIC: Grossly within normal limits. LABORATORY DATA: On admission, BUN 30, creatinine 1.8, improves yesterday, and worsens again today with BUN of 43, creatinine 2.1. Glucose 171, CO2 26 millimoles per liter. Total bilirubin was elevated on admission at 2.4 mg/dL, improves yesterday 1.3 mg/dL. Albumin down to 3.3 g/dL. Lactic acid elevated on 11/09 at 3.2 drops to 2.3 on 11/10. NT-proBNP 1483 pg/mL (less than 300). Protime normal. D-dimer mildly elevated at 1.73. White blood cell count 8100; hemoglobin 14.4 g/dL and platelets 213,000. Note is made that the hemoglobin was up to 19.1 g/dL on admission indicating some degree of dehydration. The white blood cell count today revealed 80% segmented neutrophils, yesterday revealed 45% segmented neutrophils and 19% bands. The hemoglobin A1c normal. Procalcitonin normal. Urinalysis revealed 2+ protein, trace ketones. Microscopic exam revealed heavy mucus and hyaline casts. ABGs: pH 7.42, pCO2 36, pO2 86, bicarbonate 23, lactate mildly elevated 2.37 and this set of gases is on FiO2 35%. MICROBIOLOGY DATA: Blood cultures were obtained today, obviously they are pending. RADIOLOGY EVALUATION: CT scan of abdomen and pelvis on admission revealed small-bowel obstruction and abdominal wall hernia. Hepatic cyst. Aortoiliac atherosclerosis. Chest x-ray: Mild cardiomegaly. Renal ultrasound revealed normal appearing kidneys, no hydronephrosis. V/Q scan report pending. ASSESSMENT: 1. Hypotension, leukocytosis, lactic acidosis, question intraabdominal septic event. 2. Status post exploratory laparotomy, lysis of adhesions and repair of [facility] [address] [place] [address] CONSULTATION Name: SWETHA HART Room #: 201-P [facility] IN .Shree.#: [id number] Admission: 11/09/18 ������������������ Attend Phys: Hank Brewer MD Discharge: ������������������ Date of : 34 Report #: [id number] abdominal wall-umbilical hernia repair. 3. Acute kidney injury. 4. Status post laryngectomy for squamous cell carcinoma in 1963. 5. Dehydration. Partially corrected. SUGGESTIONS: Completely agree with coverage with Zosyn and vancomycin and I have discussed this with the patient's sons. I recommend obtaining, besides procalcitonin, CRP and ESR. We will continue broad-spectrum antibiotic coverage until culture results available. Continue intravenous fluids. Dr. Hank Brewer, thank you for requesting my suggestions. ��������������������������������������������� <ELECTRONICALLY SIGNED> ���������������������������������������� By: Izaiah Taylor MD ��������������������������������������������� 11/15/18 0924 1102 1331 Izaiah Taylor MD /nt
[2018-11-15 11:35] VITALS: BP 149/72
--- NOTE | 2018-11-15 15:28 | NUR ---
Spoke with patient and son. patients at home on hospice. Dtr in law assisting with care. Son concerned patient still weak but will be eager to flood home and assist . Patient has 6 steps to main floor and 6 stesps to bedroom. He is concerned regarding his endurance. Patient and son agreeable to consider post acute care. Patient prefers 5N. Updated Dr Brewer.
--- NOTE | 2018-11-15 15:40 | NUR ---
VSS REMAINS NSR TO ST DEPENDING ON ACTIVITY 80-105, PVC'S. O2 SAT 96-98% ON 35% LARNYGECOTMY STOMA SITE SHIELD. LUNGS DIMINISHED, TOLERATING REGULAR DIET, APPETTIE POOR, CHAKRABORTY INTACT, DIEURESWING WELL ON IV LASIX, PT UP TO BRP WITH ASSIST AND WALKER, STEADY ON FEET WITH ASSIST, HAVING 3 SOFT BM'S, 1 LEFT LAP SITE WITH DRAINAGE, DRESSING APPLIED, UMBILICAL INCISION WITH STERI STRIPS AND DRAINING SEROSANGUINOUS ON LEFT SIDE OF INCISION, ABD PAD APLIED. WILL WATCH FOR FURTHER BLEEDING. WILL CONTINUE TO MONITER AND CARE FOR PT PER PLANOF CARE
--- NOTE | 2018-11-15 16:06 | PATH ---
[facility] [address] [place] [address] PATHOLOGY RPT PROCEDURE Name: TANNERSWETHA Room #: 201-P ADM IN M.R.#: [id number] ������������������ Admission: 11/09/18 ������������������ Date of : 34 Discharge: Report #: [id number] Path Case #: [id number] [facility] Accession Number: [id number] . 01 Material submitted: . hernia - EXTRA SKIN FROM HERNIA . 01 Clinical history: . Incarcerated umbilical hernia . 02 Diagnosis: Extra skin and hernia sac, repair: - Congested fibrovascular connective tissue with chronic inflammation, compatible with a hernia sac. - Skin and subcutaneous tissue with reactive changes. - Fragments of mature adipose tissue (15.4 cm aggregate) with mild chronic inflammation. (IUV:gemma; 11/15/2018) QMS/11/15/2018 . 02 Electronically signed: . Luzmaria Carpenter MD, Pathologist NPI- [id number] . 01 Gross description: . The specimen is received in formalin, labeled "Swetha Low, extra skin from hernia". Received are multiple segments of pale pan, wrinkled skin admixed with yellow-pan lobulated tissue and pink-barrera fibromembranous tissue measuring 15.4 x 12.6 x 5.2 cm in aggregate dimensions. No distinct nodules or lesions are noted grossly. The specimen is submitted representatively in cassettes A1 and A2. (CAA; 11/12/2018) QAC/QAC . 02 Pathologist provided ICD-10: L08.9, L98.8 . 02 CPT . 264166 Specimen Comment: A courtesy copy of this report has been sent to Specimen Comment: [phone], , . Specimen Comment: Report sent to ,DR HILL / DR CUMMINGS Performed at: [address], [place], [place] [id number] MD Trevin Weldon MD Phone: [phone] Performed at: [address] [address] PATHOLOGY RPT PROCEDURE Name: SWETHA LOW Room #: 201-P ADM IN M.R.#: [id number] ������������������ Admission: 11/09/18 ������������������ Date of : 34 Discharge: Report #: [id number] Path Case #: [id number] [facility] [id number] MD Luzmaria Carpenter MD Phone: [phone]
[2018-11-15 16:58] VITALS: BP 162/47
[2018-11-15 20:54] VITALS: BP 142/69
--- NOTE | 2018-11-16 03:53 | NUR ---
REASSESSMENTS CHARTED. PATIENT SINUS ARRHYTHMIA WITH 1ST DEGREE DURING SHIFT. PATIENT ON TRACH SHIELD WITH 35% OXYGEN. PALMER CURRENTLY IN PLACE, ORDER ON CHART TO DC ON 11/17 AM. PATIENT RESTING IN CHAIR DURING SHIFT. UP WITH STANDBY ASSIST TO BATHROOM WITH WALKER. DOCTOR WANTS PATIENT WEANED OFF OXYGEN HE IS NOT NORMALLY ON OXYGEN AT HOME. PLAN OF CARE TO CONTINUE CARE CURRENTLY BEING GIVEN. DENIES PAIN. FALL PRECAUTIONS IN PLACE.
[2018-11-16 05:17] VITALS: BP 123/56
[2018-11-16 06:08] LABS: HEMATOCRIT 28.7 % (42.0-52.0); HEMOGLOBIN 9.8 gm/dL (14.0-18.0); MCH 31.9 pg (26.0-34.0); MCHC 34.1 g/dL (28.0-37.0); MCV 93.5 fL (80.0-100.0); RBC 3.07 mil/uL (4.50-6.00); RDW 13.6 % (10.5-14.5); WBC 6.2 thou/uL (4.0-11.0)
[2018-11-16 06:14] LABS: CALCIUM 7.4 mg/dL (8.5-10.1); CREATININE 1.1 mg/dL (0.7-1.3)
[2018-11-16 06:20] LABS: POTASSIUM 2.6 mmol/L (3.5-5.1)
[2018-11-16 07:08] VITALS: BP 136/71
[2018-11-16 11:08] VITALS: BP 143/59
--- NOTE | 2018-11-16 14:34 | NUR ---
VSS REMAINS NSR WITH PVC'S. BP STABLE, . LAREGENCTOMY SITE INTACT. RA SAT IS 98%, REMAINS BECERRIL WITH BRP'S. LUNGS DIMINISHED, UP WITH WALKER AND ASSIST TO BRP, TOLERATED WELL ON FEET, BECERRIL. UMBILICAL INCISION WITH SEROSANGUINOUS DRAINAGE,SOME YELLOW COLOR ON LEFT SIDE OF INCISION. CAHNGED DRESSING WITH ABDS. WILL CONTINUE TO MONITER AND CARE FOR PT PER PLAN OF CARE
[2018-11-16 15:38] VITALS: BP 111/45
--- NOTE | 2018-11-16 15:43 | NUR ---
[facility] reports patient accepted to acute rehab pending bed avail. Sp with son Lux who reports he does not want patient rushed to acute rehab. Alerted bed status is pending daily pending dc. At this time bed avail in am. If not stable possibly bed thurs. Then would need to discuss other options for post acute care [facility] re[facility].
[2018-11-16 19:46] VITALS: BP 90/55
[2018-11-17 04:15] VITALS: BP 150/73
--- NOTE | 2018-11-17 05:32 | NUR ---
ASSUMED PT CARE AT 1900 WITH NO SIGN OF DISTRESS NOTED. PT IS ALERT AND ORIENTED. NO FAMILY AT BEDSIDE. ASSESSMENT COMPLETED AND CHARTED. PT IS STABLE. FALL PRECAUTION IS IN PLACE. SCHEDULED MEDS ADMINISTERED TO PT. PT TOLERATED PO INTAKE. PT IS SEEN BY PHYSICIAN. NO SIGN OF DISTRESS NOTED. DENIES ANY FURTHER NEEDS AT THIS TIME.
[2018-11-17 06:40] LABS: ALBUMIN 2.2 g/dL (3.4-5.0); CALCIUM 8.1 mg/dL (8.5-10.1); MAGNESIUM 1.8 mg/dL (1.8-2.4); POTASSIUM 3.2 mmol/L (3.5-5.1)
[2018-11-17 08:00] VITALS: BP 158/79
[2018-11-17 16:00] VITALS: BP 128/97
--- NOTE | 2018-11-17 18:06 | NUR ---
ASSUMED CARE OF PT AT SHIFT CHANGE. ASSESSMENTS CHARTED. MEDS GIVEN PER JUL. PT ALERT AND ORIENTED, VSS, DENIES PAIN. PT C/O TROUBLE BREATHING THIS AM, O2 TRACH MASK PUT BACK ON, PT REQUESTED O2 TO BE PUT AT 7L. PT EXPRESSED RELIEF OF SOB WHEN TRACH MASK BACK ON. PT WORKED WITH PHYS THERAPY THIS SHIFT, TOLERATED WELL. APPETITE INADEQUATE, PT STATES HE DOES NOT LIKE FOOD HERE, SEVERAL OPTIONS OFFERED, DECLINED. WILL CONT TO OFFER. PLAN IS FOR PT TO GO TO REHAB. PT PROGRESSING APPROPRIATELY TOWARDS GOALS. DENIES CONCERNS AT THIS TIME. WILL CONT TO MONITOR AND FOLLOW POC.
[2018-11-17 21:02] VITALS: BP 154/56
[2018-11-17] MEDS ORDERED: AUGMENTIN 500-1 EACH PO (23:32)
[2018-11-17] MEDS ORDERED: FLOMAX0.4 MG PO (23:33)
[2018-11-17] MEDS ORDERED: COREG6.25 MG PO (23:34)
[2018-11-17] MEDS ORDERED: PRINIVIL20 MG PO (23:35)
[2018-11-17] MEDS ORDERED: K-DUR 20 MEQ T20 MEQ PO (23:35)
[2018-11-17] MEDS ORDERED: PEPCID20 MG PO (23:36)
[2018-11-18 04:13] VITALS: BP 138/79
--- NOTE | 2018-11-18 05:02 | NUR ---
ASSUMED PT CARE AT 1900 WITH NO SIGN OF DISTRESS NOTED IN PT. PT IS ALERT AND ORIENTED. NO FAMILY AT BEDSIDE. PT IS SITTING IN CHAIR. ASSESSMENT COMPLETED AND CHARTED. FALL PRECAUTION IN PLACE. VITAL SIGNS STABLE. SCHEDULED MEDS ADMINISTERED TO PT. PT IS TO BE DISCHARGED TO REHAB. DENIES ANY FURTHER NEEDS AT THIS TIME.
[2018-11-18 06:37] LABS: CALCIUM 8.2 mg/dL (8.5-10.1); POTASSIUM 3.4 mmol/L (3.5-5.1)
[2018-11-18 08:44] VITALS: BP 150/71
--- NOTE | 2018-11-18 13:40 | NUR ---
Pt is dcing to [facility] acute rehab today. Pt and his son Lux are aware and agreeable. Pt's son to bring in street clothing and walking shoes. Pt is going to rm 506. Son updated with the room number. Case closed.
--- NOTE | 2018-11-18 14:51 | NUR ---
PT UP TO REHAB 506 TRANSFERED VIA WHEEL CHAIR WITH ALL BELONGINGS TO REHAB. ABDOMEN DRESSING OPEN STOMA TO HUMIDIFIED AIR. VS STABLE NO CONCERNS OR ISSUES NOTED AT THIS TIME. NEEDING SOME REHAB CARE AND TREATEMENT POST LAP SURGERY.
--- NOTE | 2018-11-18 15:25 | NUR ---
CANCELED 5 REHAB ORDER AND SURGEON NOTIFIED PRESSURE DRESSING APPLYIED TO INCISION ON ABDOMEN. INSTRUCTED PT TO STAY ON BED REST HE HAS DONE TOO MUCH ACTIVITY TODAY POST OPERTATIVE. CAN USE THE URINAL OR BEDPAN. SURGEON WILL COME IN AND SEE PT. BRIGHT RED AND SATURATED CHANGED AND PRESSURE DRESSING APPLYIED WILL CONTINUE TO ASSES AND MONITOR PER NURSING. NSR. HUMIDIFIED OXYGEN TO STOMA. VERBALIZES UNDERSTANDING OF PLAN OF CARE AND ACTIVITY AT THIS POINT PT DOES .
--- NOTE | 2018-11-18 15:38 | NUR ---
DC to [facility] cancelled this afternoon d/t incisional bleeding. Nursing has spoken with the attending and the pt's son Lux. Material Handler 2Nd Shift updated the [facility] liason. They will follow and reassess tomorrow.
[2018-11-18 16:00] VITALS: BP 152/77
[2018-11-18 20:03] VITALS: BP 161/74
[2018-11-19 04:40] VITALS: BP 146/64
--- NOTE | 2018-11-19 05:55 | NUR ---
ASSUMED PT CARE AT 1900 WITH NO SIGN OF DISTRESS NOTED IN PT. PT IS ALERT AND ORIENTED. NO FAMILY AT BEDSIDE. PT IS STABLE. ASSESSMENT COMPLETED AND CHARTED. PT IS NSR ON THE MONITOR. SCHEDULED MEDS ADMINISTERED TO PT. PT TOLERATED PO INTAKE. WITH CHAKRABORTY PLACEMENT PT HAD A LOW URINE OUTPUT THROUGHOUT THE NIGHT. BLADDER SCAN WAS PERFORMED AND PT WAS NOTED TO BE RETAINING URINE OF ABOUT 830. DR HILL NOTIFIED. BLADDER IRRIGATION WAS PERFORMED AND HUGE AMOUNT OF BLOOD WAS NOTED UPON REMOVAL OF CHAKRABORTY CATHETER. A THREE-WAY CHAKRABORTY CATHETER WAS PLACED. NO SIGN OF DISTRESS NOTED IN PT. CONTINUE TO MONITOR PATIENT. DENIES ANY FUTHER NEEDS AT THIS TIME. FALL PRECAUTION IN PLACE.
[2018-11-19 06:54] LABS: HEMATOCRIT 34.1 % (42.0-52.0); HEMOGLOBIN 11.3 gm/dL (14.0-18.0); MCH 31.1 pg (26.0-34.0); MCHC 33.2 g/dL (28.0-37.0); MCV 93.6 fL (80.0-100.0); RBC 3.64 mil/uL (4.50-6.00); RDW 13.4 % (10.5-14.5); WBC 15.1 thou/uL (4.0-11.0)
[2018-11-19 07:08] LABS: CALCIUM 8.7 mg/dL (8.5-10.1); CREATININE 1.2 mg/dL (0.7-1.3); MAGNESIUM 1.9 mg/dL (1.8-2.4); POTASSIUM 3.5 mmol/L (3.5-5.1)
[2018-11-19 07:09] LABS: APTT 24.7 Seconds (24.5-32.8); INR 1.2; PROTIME 12.4 Seconds (9.3-11.4)
[2018-11-19 07:25] LABS: URINE BILIRUBIN NEGATIVE (Negative); URINE BLOOD 2+ (Negative); URINE CLARITY CLEAR; URINE COLOR YELLOW; URINE GLUCOSE-RANDOM* NEGATIVE (Negative); URINE KETONES 1+ (Negative); URINE LEUKOCYTES-REFLEX NEGATIVE (Negative); URINE NITRITE-REFLEX NEGATIVE (Negative); URINE PROTEIN (DIPSTICK) 1+ (Negative); URINE SPECIFIC GRAVITY 1.015 (1.005-1.035); URINE UROBILINOGEN 0.2 E.U./dl (0.2-1.0)
--- NOTE | 2018-11-19 07:39 | HC ---
[facility] [place] [address] CONSULTATION Name: TANNERSWETHA Ryan Room #: 201-P [facility] IN .R.#: [id number] Admission: 11/09/18 ������������������ Attend Phys: Hank Brewer MD Discharge: ������������������ Date of : 34 Report #: [id number] THIS REPORT FOR: //name// CC: Hank Brewer REASON FOR CONSULTATION: Acute kidney injury. REASON FOR PRESENTATION: Vomiting x 4 days. HISTORY OF PRESENT ILLNESS: An 83-year-old who presented on the with 4 days history of persistent vomiting. He has not been eating for those days. He presented for further evaluation. No previous similar episodes. He presented to the Emergency Room. He was found to have intestinal obstruction due to an incarcerated hernia and had an operation accordingly. Creatinine on presentation was 1.8. The patient ran into issues with hypotension postoperatively and creatinine had risen up, mandating Nephrology consultation. He has an extensive past medical history that will be listed below. PAST MEDICAL HISTORY: 1. Laryngeal carcinoma post-laryngectomy. 2. Hypertension. 3. BPH. 4. Known ventral hernia. 5. Hemorrhoid surgery. 6. Back surgery. 7. Arthroscopy. MEDICATIONS: 1. Simvastatin. 2. Irbesartan and hydrochlorothiazide. 3. Doxazosin. 4. Aspirin; however, the patient had not been taking those because of his nausea and vomiting. SOCIAL HISTORY: He lives with his . No drug or alcohol abuse. ALLERGIES: None. REVIEW OF SYSTEMS: The patient is currently not able to provide me with the review of system. He is not able to speak because of his laryngectomy. He does not have his voice gadget. PHYSICAL EXAMINATION: VITAL SIGNS: Blood pressure is 97/56. HEAD AND NECK: Tracheostomy. CHEST: No crackles. CARDIOVASCULAR: No rub. [facility] [address] [facility] [address] CONSULTATION Name: SWETHA HATR Room #: 201-P [facility] IN M.R.#: [id number] Admission: 11/09/18 ������������������ Attend Phys: Hank Brewer MD Discharge: ������������������ Date of : 34 Report #: [id number] ABDOMEN: Distended, tender. LOWER EXTREMITIES: No edema. LABORATORY DATA: Reviewed. BUN is 43, creatinine is 2.1. ASSESSMENT, IMPRESSION AND PLAN: 1. Acute kidney injury. 2. Hypotension. 3. Mildly elevated lactic acid. 4. Fever. 5. Post-herniorrhaphy and lysis of adhesion. 6. Known history of laryngeal cancer. 7. Benign prostatic hypertrophy. 8. History of hypertension. 9. Continue to monitor renal function. 10. IV fluid resuscitation. 11. Antibiotics coverage for potential sepsis. 12. Pressors p.r.n. 13. Aggressive volume resuscitation. 14. ID consultation. 15. Routine surgical followup. 16. Basic acute kidney injury workup. 17. Expect his kidneys to fully recover. ��������������������������������������������� <ELECTRONICALLY SIGNED> ���������������������������������������� By: Kevin Gibbs MD ��������������������������������������������� 11/19/18 0739 0838 1 Kevin Gibbs MD /erasto
[2018-11-19 08:03] LABS: BACTERIA-REFLEX 1-9 Few /HPF (None Seen); CASTS None Seen /LPF (None Seen); CRYSTALS None Seen /LPF (None Seen); SQUAMOUS None Seen /LPF (0-3); URINE WBC-REFLEX 0-5 Rare /HPF (0-5)
[2018-11-19 08:17] VITALS: BP 164/65
--- NOTE | 2018-11-19 11:11 | NUR ---
ASSUMED CARE THIS AM, AWAKE AND ALERT. SUPINE IN BED. NO COMPLAINTS OF PAIN OR NAUSEA, OR DIZZINESS. ABDOMINAL DRESSING INTACT WITH NO SIGNS OF BLEEDING. BLOOD NOTED AT CHAKRABORTY INSERTION SITE. CLEANED THE AREA AND WRAPPED WITH GAUZE. NO BLOOD NOTED IN URINE. MINIMIZE ACTIVITY TODAY TO DECREASE CHANCE OF BLEEDING AT INCISION SITE.
[2018-11-19 12:42] VITALS: BP 140/64
--- NOTE | 2018-11-19 14:23 | NUR ---
Pt with elevated wbc today and hematuria. [facility] is following along and could accept the pt over the weekend if medically cleared to go to rehab.The [facility] liason would need to be contacted: Zaira at [phone] to make those arrangements.
--- NOTE | 2018-11-19 15:08 | NUR ---
PATIENT IS A CANDIDATE FOR [facility] AND HAD INITIALLY PLANNED TO COME UP TO REHAB ON 11/18/18. ADMISSION DELAYED DUE TO MEDICAL COMPLICATIONS. POSSIBLE ADMISSION OVER WEEKEND OR EARLY NEXT WEEK. DR. HILL GIVEN SNUFF BOX FINISHER'S PHONE NUMBER TO CONTACT LIA[facility] WHEN PATIENT IS READY FOR [facility] ADMISSION. ([phone] [place]). IF WEEKEND NURSE NEEDS TO CONTACT LIAISON, PLEASE USE SAME NUMBER. LIAISON MUST BE CONTACTED PRIOR TO ADMISSION TO FACILITATE ADMISSION PROCESS/REQUIREMENTS. THANK YOU FOR THIS REFERRAL.
[2018-11-19 16:32] VITALS: BP 159/66
[2018-11-19 20:28] VITALS: BP 93/64
[2018-11-20 04:15] VITALS: BP 141/56; BP 163/51
--- NOTE | 2018-11-20 05:53 | NUR ---
ASSUMED PT CARE AT 1900 WITH NO SIGN OF DISTRESS NOTED IN PT. PT IS STABLE. VITAL SIGNS STABLE. NO SIGN OF DISTRESS NOTED, PT HAD A GOOD URINE OUTPUT. NO SIGN OF DISTRESS NOTED. SCHEDULED MEDS ADMINISTERED TO PT, PT TOLERATED PO INTAKE. NO FAMILY AT BEDSIDE. DENIES ANY FURTHER NEEDS AT THIS TIME
[2018-11-20 06:48] LABS: HEMATOCRIT 32.2 % (42.0-52.0); HEMOGLOBIN 10.9 gm/dL (14.0-18.0)
[2018-11-20 07:10] VITALS: BP 150/71
[2018-11-20 11:15] VITALS: BP 108/43
[2018-11-20 15:35] VITALS: BP 130/65
--- NOTE | 2018-11-20 18:15 | NUR ---
ASSESSMENT CHARTED, PATIENT DROWSY, REFUSES MEALS, DOES DRINK THE SUPPLEMENTS. CHAKRABORTY DC'D AND TOLERATED WELL. UP TO CHAIR AND USED BEDSIDE COMMODE. BLADDER SCAN- 31ML - AT 1700. REPORTED RESULT TO DR. CANSECO, RECEIVED ORDER TEA. WILL CONTINUE TO MONITOR.
[2018-11-20 19:07] VITALS: BP 105/82
[2018-11-21 00:28] VITALS: BP 156/66
[2018-11-21 03:33] VITALS: BP 140/47
--- NOTE | 2018-11-21 04:27 | NUR ---
RECEIVED PT'S CARE AT 1925; PT. ON CHAIR; AOX4; DURING ASSESSMENT NO C/O PAIN; ON RA; HS MEDICATION GIVEN; EDUCATED ABOUT CALLING BEFORE STANDING UP FROM BED; ST. UNDERSTANDING; AROUND MIDNIGHT PT. REQUESTED TO GO TO THE RESTROOM; RED COLOR URINE COLOR VOIDED; PT. NO PAIN OR BURNING WHILE VOIDING; BLADDER SCANNED; 00 ML SHOWED; AT 0034 PHYSICIAN NOTIFIED; ORDERS RECEIVED; CBI INITIATED; TEA COLOR URINE WITH SMALL RED COLOR SEDIMENTS OBTAIN WHEN CATHETER INSERT; AFTER 1000 ML FLUSHED URINE CLEAR; NO C/O PAIN; ABLE TO REST WITH EYES CLOSE; ASSESSMENT CHARGED; MONITORING; WILL PASS ON REPORT.
[2018-11-21 07:25] VITALS: BP 137/81
--- NOTE | 2018-11-21 11:08 | HC ---
[facility] [address] [address] CONSULTATION Name: SWETHA HART Room #: 201-P [facility] IN .R.#: [id number] Admission: 11/09/18 ������������������ Attend Phys: Hank Brewer MD Discharge: ������������������ Date of : 34 Report #: [id number] THIS REPORT FOR: //name// CC: Hank Brewer DATE OF SERVICE: 11/20/2018 NEUROBEHAVIORAL STATUS EXAMINATION ATTENDING PHYSICIAN: Hank Brewer M.D. HOT DIE PRESS OPERATOR: Mo Wick, PhD. CLINICAL PRESENTATION: The patient is an 83-year-old male admitted to the [facility] through the Emergency Room with 4 days of vomiting. He was diagnosed with a small-bowel obstruction and ventral hernia. Additionally, he is reported to have had a bladder outlet obstruction. His medical course was complicated with sepsis, acute renal insufficiency and acute hypoxic respiratory failure. 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 A complete description of his medical condition, history and medications can be found in his medical record. Neuropsychological consultation was requested to provide assistance in the assessment of cognitive and emotional status and to provide recommendations and services. Prior to this most recent medical event, he was taking care of his in their home. His has end stage cancer and is currently on hospice. He has one stepson and [id number] who are involved in his care. The patient reported that he was driving and independent with instrumental activities of daily living prior to this most recent medical event. He is a high school graduate with 1 year of college. 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 TECHNIQUES UTILIZED: Clinical interview, review of medical records, staff consultation and behavioral observation, mini mental status exam 2 standard version, digits forward, digits backward and brief abstract reasoning tasks. [facility] [address] [place] [address] CONSULTATION Name: SWETHA HART Room #: 201-P [facility] IN M.R.#: [id number] Admission: 11/09/18 ������������������ Attend Phys: Hank Brewer MD Discharge: ������������������ Date of : 34 Report #: [id number] EXAMINATION FINDINGS: The patient was alert and cooperative with the assessment. He accurately described the reason for his hospitalization. Nursing reports that he has not been eating or drinking. The patient required much effort for verbal expression as a result of a laryngectomy and prior laryngeal squamous cell cancer treatment. He states that while his appetite is decreased, he indicates food options as interfering with appetite. Decreased cognitive functioning is likely to be interfering with his ability to select his own food and request the help that he is needing for problem solving. He does not report difficulty with sleep, memory, or word finding and denies anxiety or depression. However, his affect appears despondent, and his circumstances with his in hospice likely contribute to a depressed mood. His performance on the MMSE 2 brief version is extremely low with a raw score of 9/16. He was 3/3 for initial registration, 2/5 for orientation to time, 4/[address] and 0/3 for immediate recall of 3 items after a brief time delay and distraction. His performance on the MMSE 2 standard version was extremely low with a raw score of 18/30. He was 1/5 for serial sevens, 2/2 for naming, 1/1 for repetition, 3/3 for auditory comprehension. He could read and follow a single command. The patient could also write a sentence. However, he was unable to accurately copy a simple geometric design. Initial focused attention as assessed by digits forward was mildly impaired with a T score at 37 and percentile rank at 10. Sustained concentration as assessed through digits backward is mild to moderately impaired and in the borderline range with a T score of 33 and percentile rank of 4. Performance on clock drawing was satisfactory for number placement. However, he did not accurately place hands at the required time. Deficits in executive functioning and impulsivity are suggested. Brief verbal abstraction test was 2/8 suggesting impairment in conceptual reasoning. The patient is presenting with deficits in attention/concentration, orientation, immediate memory, visual spatial construction and executive functioning. Additionally, he is likely to have poor initiative and difficulty with planning and problem solving that interfere with his ability to inform others of specific needs. DIAGNOSTIC IMPRESSION: Major neurocognitive disorder (dementia), due to medical etiology, without behavior disorder -- extent to be determined, likely in the mild range. Unspecified Depressive Disorder RECOMMENDATIONS: [place] assistance with filling out his menu and help with [address] [address] CONSULTATION Name: PAULSILVIASWETHA Ryan Room #: 201-P [facility] IN M.R.#: [id number] Admission: 11/09/18 ������������������ Attend Phys: Hank Brewer MD Discharge: ������������������ Date of : 34 Report #: [id number] meal planning is indicated. He is reported to have been accepted for inpatient rehabilitation. He will benefit from the use of speech therapy to assist with compensation strategies as well as cognitive stimulation for improvement of cognitive deficits. A followup neuropsych assessment will be of benefit to clarify cognitive status as his medical condition resolves. At this time, he requires assistance with planning and problem solving. Continue to monitor mood as he may benefit from an antidepressant. Verbal support and encouragement when participating in therapies and taking initiative. Thank you very much for allowing me to provide the consultation on this patient. ��������������������������������������������� <ELECTRONICALLY SIGNED> ���������������������������������������� By: Mo Wick, PhD ��������������������������������������������� 11/21/18 1108 1606 1829 Mo Wick, PhD /nt
[2018-11-21 11:25] VITALS: BP 124/49
[2018-11-21 15:35] VITALS: BP 124/63
[2018-11-21] MEDS ORDERED: NYSTATIN100000 UNI SW&SWALLOW (17:22)
[2018-11-21] MEDS ORDERED: REMERON15 MG PO (17:22)
--- NOTE | 2018-11-26 18:28 | HC ---
[facility] [place] [address] CONSULTATION Name: TANNERSWETHA Ryan Room #: 201-P [facility] IN ..#: [id number] Admission: 11/09/18 ������������������ Attend Phys: Hank Brewer MD Discharge: 11/21/18 ������������������ Date of : 34 Report #: [id number] THIS REPORT FOR: //name// CC: Hank Brewer DATE OF SERVICE: 11/16/2018 HISTORY OF PRESENT ILLNESS: The patient is an 83-year-old white male who was admitted with vomiting x 4 days, had a small-bowel obstruction with ventral hernia. He also had bladder outlet obstruction. He was noted to have an incarcerated large umbilical hernia with small-bowel obstruction and underwent laparoscopic repair on 11/11 with lysis of adhesions. His course was complicated by sepsis, acute renal insufficiency. He has an extensive ecchymosis over his left-sided abdominal wall. He also was noted to have acute hypoxic respiratory failure. The patient has medical complexity with generalized debilitation and we are seeing him in rehabilitation medicine consultation. He has had a significant decline from his premorbid functional status. PAST MEDICAL HISTORY: Includes laryngeal squamous cell CA, status post laryngectomy back in 1963, history of obesity, BPH, glaucoma, hyperlipidemia, back surgery, greater than 10 years ago, right knee arthroscopy. MEDICATIONS: Please see the full medication listing as noted. ALLERGIES: No known drug allergies. SOCIAL HISTORY: Retired, lives with who is currently on hospice. There is an involved son and [id number]-[id number] and the bzjzamft-te-yuq is currently staying with his . They live in a split level house, 3 steps in, 12 inside. The patient premorbidly was ambulatory without gait aids. REVIEW OF SYSTEMS: No current complaints of chest pain, shortness of breath. He does have some abdominal discomfort as expected. Complains of generalized overall weakness. He has the chronic laryngectomy. FAMILY HISTORY: Significant for longevity and hypertension. PHYSICAL EXAMINATION: GENERAL: An 83-year-old obese white male in no obvious distress. VITAL SIGNS: Temperature 98.2, pulse 78, respirations 18, blood pressure 136/71. The patient is alert, pleasant. HEENT: Appeared to be benign except for the chronic laryngectomy. NEUROLOGIC: He is able to verbalize reasonably well with short statements. Facies appeared symmetric. Functional range of motion of the upper extremity strength is grade 4-/5. DTRs are trace to [address]. [address] [address] CONSULTATION Name: SWETHA HART Room #: 201-P [facility] IN ..#: [id number] Admission: 11/09/18 ������������������ Attend Phys: Hank Brewer MD Discharge: 11/21/18 ������������������ Date of : 34 Report #: [id number] ABDOMEN: He has a large pendulous abdomen and has a significant ecchymosis along the left lateral abdominal and flank area. He has the lower midline dressing in place over his abdominal incision. He currently has an indwelling Bush catheter. Lower extremities. Tone appeared to be intact. Strength is probably a grade 4- to 3+/5. DTRs are trace to 1. He was min assist sit to stand. Gait was min assist 20 feet x 2 with a front-wheeled walker. Toilet transfers have been min assist per OT. ASSESSMENT: An 83-year-old white male with the following problems: 1. Medical complex with generalized debilitation. 2. Sepsis. 3. Small-bowel obstruction with incarcerated large umbilical hernia, status post laparoscopic repair, 11/11. 4. Acute renal insufficiency. 5. Acute hypoxic respiratory failure, which has improved. 6. Bladder outlet obstruction. 7. Large left lateral abdominal wall hematoma. 8. 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 9. Obesity. 10. Osteoarthritis. 11. Benign prostatic hypertrophy. 12. Past history of back surgery. 13. Arthroscopy, right knee. PLAN: The patient is a candidate for an acute in-hospital inpatient rehabilitation stay. Can plan on transfer to the acute [address] [place] [address] inpatient rehab galarza when medically cleared and a bed available. The patient appears amenable to the plan. Thank you for asking us to assist in this patient's care. ��������������������������������������������� <ELECTRONICALLY SIGNED> ���������������������������������������� By: Reg Pierre MD ��������������������������������������������� 11/26/18 1828 1030 2229 Reg Pierre MD /[facility]
--- NOTE | 2018-12-08 23:12 | O ---
[facility] [place] [address] [place] [address] OPERATIVE REPORT Name: PAULSILVIASWETHA Ryan Room #: 201-P [facility] IN .R.#: [id number] Admission: 11/09/18 ������������������ Attend Phys: Hank Brewer MD Discharge: 11/21/18 ������������������ Date of : 34 Report #: [id number] THIS REPORT FOR: //name// CC: Hank Brewer DATE OF SERVICE: 11/11/2018 PREOPERATIVE DIAGNOSES: Incarcerated large umbilical hernia with small-bowel obstruction. POSTOPERATIVE DIAGNOSES: Incarcerated large umbilical hernia with small-bowel obstruction. OPERATIVE PROCEDURE: 1. Laparoscopic repair of a large umbilical hernia with mesh. 2. Lysis of adhesions. 3. Umbilicoplasty. OPERATING SURGEON: Stas Ferrer MD INDICATIONS FOR THE PROCEDURE: The patient is an 83-year-old male who presented with a large incarcerated umbilical hernia with some features of a small-bowel obstruction. The patient was advised laparoscopic repair of the same. DESCRIPTION OF PROCEDURE: After explaining to the patient in detail, an informed consent was obtained. The patient was identified in the preoperative holding area. The patient was transferred to the operating room and was placed in supine position. Subsequent serial compression devices were placed for DVT prophylaxis. Preoperative antibiotics were given. After induction of anesthesia, the abdomen was prepped and draped in a sterile fashion. Through a left upper quadrant 1 cm incision and using Optiview technique, peritoneal cavity was entered and pneumoperitoneum was created so thereafter, under direct vision, another 5 mm trocar was placed in the left flank and another 8 mm trocar was placed in the left lower quadrant. On my initial inspection, the patient was noted to have distended small bowel. The patient was noted to have a large incarcerated ventral hernia in the region of the umbilicus. The hernial defect itself measured approximately about 6 cm. Adhesiolysis of the small bowel that appeared to have been very incarcerated was gently reduced by gentle traction. I continued lysis of adhesions. There was a large amount of small bowel and omentum and the dissection and reduction of this part of the bowel was tedious. I did lysis of adhesions for nearly 35 minutes and I was finally able to reduce the hernial contents completely. The bowel appeared viable. I then excised the redundant sac using sharp and blunt dissection as much as possible. Once this was completed, I then noticed a large amount of redundant skin where the hernia was and therefore, I decided to do it like a combination procedure. I excised the redundant skin using a 12 cm elliptical incision around the redundant skin [address] [address] OPERATIVE REPORT Name: SWETHA HART Room #: 201-P DIS IN ..#: [id number] Admission: 11/09/18 ������������������ Attend Phys: Hank Brewer MD Discharge: 11/21/18 ������������������ Date of : 34 Report #: [id number] anteriorly. The fascial defect was then closed with multiple interrupted Ethibond sutures at 1 cm intervals. Once this was completed, the umbilicus was then recreated and the skin approximated in layers using a 3-0 Vicryl for subcutaneous tissue, skin was closed with 4-0 Monocryl. Once this was completed, I then stopped at the pneumoperitoneum once again and I then placed a 10 x 15 cm Ventralight mesh and this was anchored on to the anterior abdominal wall with 4 interrupted Liebenthal-Pedro sutures in the four corners. Mesh was then tacked circumferentially using secure strap at 1 cm intervals to get a complete coverage and at least 3 cm lateral to the hernial defect. Absolute hemostasis was ensured. The abdomen was then desufflated. Incisions were closed with 4-0 Monocryl. Dermabond was applied. The patient was stable at the end of the procedure. The patient was awoken up from anesthesia and was transferred to the recovery room in stable condition. ESTIMATED BLOOD LOSS: 10 mL CONDITION OF THE PATIENT: Stable. FLUIDS GIVEN: Per Anesthesia note. SPECIMENS: Sent, excised redundant skin. COMPLICATIONS: None. ANESTHESIA: General anesthesia. ��������������������������������������������� <ELECTRONICALLY SIGNED> ���������������������������������������� By: Stas Ferrer MD ��������������������������������������������� 12/08/18 2312 2253 0006 Stas Ferrer MD /nt
== END 2018-11-21 18:16 | DRG 326 ==
LOC: ER 18:52 → 4W 22:17 → EROBS 22:17 → 2N 22:17 → 4W 23:45 → ICU 11-12 06:25 → 2N 11-14 18:43
PROVIDERS: Emergency Medicine; Hospitalist; Internal Medicine; Internal Medicine Pulmonary Disease; Nurse Practitioner Acute Care; ADMIT Internal Medicine
PROC: 0W0F4ZZ Alteration of Abdominal Wall, Percutaneous Endoscopic Approach (ICD-10-PCS; 2018-11-11)
PROC: 0DN64ZZ Release Stomach, Percutaneous Endoscopic Approach (ICD-10-PCS; 2018-11-11)
PROC: 0WUF4JZ Supplement Abdominal Wall with Synthetic Substitute, Percutaneous Endoscopic Approach (ICD-10-PCS; 2018-11-11)
PROC: 02HV33Z Insertion of Infusion Device into Superior Vena Cava, Percutaneous Approach (ICD-10-PCS; principal; 2018-11-12)
DX: K42.0 Umbilical hernia with obstruction, without gangrene (principal); A41.9 Sepsis, unspecified organism; J96.01 Acute respiratory failure with hypoxia; J18.9 Pneumonia, unspecified organism; N17.9 Acute kidney failure, unspecified; E87.2 Acidosis; K56.7 Ileus, unspecified; E87.1 Hypo-osmolality and hyponatremia; E46 Unspecified protein-calorie malnutrition; D62 Acute posthemorrhagic anemia; E87.0 Hyperosmolality and hypernatremia; K43.6 Other and unspecified ventral hernia with obstruction, without gangrene; E66.9 Obesity, unspecified; I95.9 Hypotension, unspecified; E87.6 Hypokalemia; Z66 Do not resuscitate; E83.42 Hypomagnesemia; H40.9 Unspecified glaucoma; E78.5 Hyperlipidemia, unspecified; E86.0 Dehydration; N32.0 Bladder-neck obstruction; M19.90 Unspecified osteoarthritis, unspecified site; F03.90 Unspecified dementia, unspecified severity, without behavioral disturbance, psychotic disturbance, mood disturbance, and anxiety; F32.9 Major depressive disorder, single episode, unspecified; N18.9 Chronic kidney disease, unspecified; I12.9 Hypertensive chronic kidney disease with stage 1 through stage 4 chronic kidney disease, or unspecified chronic kidney disease; D72.825 Bandemia; I49.1 Atrial premature depolarization; I73.9 Peripheral vascular disease, unspecified; I71.4 Abdominal aortic aneurysm, without rupture; K21.9 Gastro-esophageal reflux disease without esophagitis; N40.1 Benign prostatic hyperplasia with lower urinary tract symptoms; R33.8 Other retention of urine; E88.09 Other disorders of plasma-protein metabolism, not elsewhere classified; R31.9 Hematuria, unspecified; Z90.02 Acquired absence of larynx; Z79.899 Other long term (current) drug therapy; Z79.82 Long term (current) use of aspirin; Z85.21 Personal history of malignant neoplasm of larynx; Z93.0 Tracheostomy status; Z68.39 Body mass index [BMI] 39.0-39.9, adult; Z82.49 Family history of ischemic heart disease and other diseases of the circulatory system; Z80.8 Family history of malignant neoplasm of other organs or systems; B37.9 Candidiasis, unspecified
CPT/HCPCS: 10040; 10045; 10078; 10081; 10797; 27000; 50010; 50101; 50249; 50386; 50555; 50804; 50984; 52265; 52266; 54022; 54118; 56524; 56525; 56526; 56527; 56530; 57092; 57257; 57261; 62110; 62900; 70005

== ENCOUNTER 2018-11-18 13:18 | Inpatient (IN) | payer OTHER ==
[~2018-11-18] VITALS: Ht 177.8 cm; Wt 120.9 kg
[~2018-11-18 13:18] MED LIST changes: +AUGMENTIN 500-1 EACH PO; +COREG6.25 MG PO; +FLOMAX0.4 MG PO; +K-DUR 20 MEQ T20 MEQ PO; +PEPCID20 MG PO; +PRINIVIL20 MG PO
[2018-11-21] MEDS ORDERED: NYSTATIN100000 UNI SW&SWALLOW (17:22)
[2018-11-21] MEDS ORDERED: REMERON15 MG PO (17:22)
[2018-11-21 20:40] VITALS: BP 117/59
--- NOTE | 2018-11-21 20:58 | NUR ---
REPORT RECEIVED BY NURSE OF CCU AT APPROXIMATELY 1645. PT BROUGHT TO UNIT AFTER HAVING EATEN DINNER IN CCU. PT TRANSFERED TO BED WITH 1 PERSON ASSISTANCE USING GAIT BELT. CONSENTS SIGNED, PT EDUCATED AND ORIENTED TO ROOM. NAME BAND CHANGED AT 1800. FALL PRECAUTIONS IN PLACE AND NURSING WILL CONTINUE TO MONITOR.
--- NOTE | 2018-11-22 00:03 | NUR ---
PT ADMITTED TO [address] [place] [address] THIS EVENING WITH MEDICAL COMPLEXITY WITH GENERAL DEBILITATION S/P SEPSIS. VSS. MEDS WILL BE GIVEN ORDERED. ABD INCISION WOUND WITH STERI STRIPS HEALING. SIGNIFICANT BRUISES ABOUND ABD AND DOWN LEG CONTINUES. ADMIT HX AND ASSESSMENT COMPLETED. SLEEPING WELL. WILL CONTINUE TO MONITOR FREQUENTLY.
--- NOTE | 2018-11-22 03:40 | NUR ---
LATE ENTRY; ON 11/20/18 PT'S EMAR RECORD SHOWS MIRTAZAPINE 15 MG AT 2206 NOT GIVEN; PROGRESS NOTES STATED ON 11/20/18 "HS MEDICATION GIVEN"; PT. HAD ALL SCHEDULED MEDICATION ON 11/20/18; INCORRECT CHARTING; PT. REFUSED MEDICATION ON FIRST INSTANCE; EDUCATED ABOUT PHYSICIAN ORDERING; AGREED TO TAKE MEDICATION; ALL SCHEDULED MEDICATION GIVEN PER ORDER; UNNABLE TO CORRECT EMAR CHARTING ON 11/20/18; LATE PROGRESS NOTE ENTERED ON 11/22/18 AT 0354;
[2018-11-22 05:55] LABS: HEMATOCRIT 31.9 % (42.0-52.0); MCH 32.4 pg (26.0-34.0); MCHC 34.4 g/dL (28.0-37.0); MCV 94.2 fL (80.0-100.0); RBC 3.38 mil/uL (4.50-6.00); RDW 13.8 % (10.5-14.5); WBC 7.7 thou/uL (4.0-11.0)
[2018-11-22 06:07] LABS: CALCIUM 8.1 mg/dL (8.5-10.1); CREATININE 0.9 mg/dL (0.7-1.3); POTASSIUM 3.2 mmol/L (3.5-5.1)
[2018-11-22 08:20] VITALS: BP 136/63
--- NOTE | 2018-11-22 14:01 | NUR ---
chart review, cm visited with pt at bedside. pt up in recliner getting ready to work with ot. pt is able to make his needs know. per chart, pt and ot " live at home with , am primary caregiver for on hospice. split home, 6 steps into home and 6 up to bedroom and bathroom. grab bars in bathroom. bath chair. 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 will cont following as needed for dc needs
[2018-11-22 19:37] VITALS: BP 98/57
--- NOTE | 2018-11-22 20:52 | NUR ---
ASSUMED CARE AT APPROX 0715. PATIENT A/O X3-4. DIFFICULT TO UNDERSTAND AT TIMES. TRACHEOSTOMY NOTED, NO SPEAKING VALVE. PATIENT PROVIDES OWN CARES FOR STOMA, REFUSED MOIST AIR MASK TO NECK. PARTICIPATED IN THERAPY. LOWERING ABDOMINAL INCISION APPROXIMATED, STERI-STRIPS IN PLACE. NO DRAINAGE NOTED FROM WOUND AT TIME OF ASSESSMENT, OT REPORTED SEEING DRIED DRAINAGE ON PATIENT'S SHIRT. [place] DRESSING APPLIED TO MONITOR DRAINAGE. FALL PRECAUTIONS IN PLACE. PATIENT IMPULSIVE, WOULD SIT UP EDGE OF BED AT TIMES WITHOUT CALLING. ATTEMPTED TO TRANSFER HIMSELF TO BEDD. ALARMS IN PLACE. PATIENT EDUCATED ON FALL PRECAUTIONS. PATIENT CORRECTLY DEMONSTRATED HOW TO USE CALL LIGHT. ROUNDED ON HOURLY. RESTING IN RECLINER AT END OF SHIFT.
--- NOTE | 2018-11-23 04:12 | NUR ---
PT ASSESSMENT COMPLETED AND VSS. MEDS GIVEN ORDERED AND WELL TOLERATED. FALL PRECAUTIONS IN PLACE. UP TO THE BATHROOM WITH ASST/GAIT/WALKER. STEADY. PT CONTINUES TO VOID BLOOD TINGED URINE. PT STATES THAT HE IS VERY WEAK BUT THAT THERAPY WAS VERY HELPFUL TODAY. HE THINKS HE IS STARTING TO GET STRONGER. SLEEPING WELL. WILL CONTINUE TO MONITOR FREQUENTLY.
[2018-11-23 08:05] VITALS: BP 138/49
--- NOTE | 2018-11-23 11:13 | NUR ---
ASSUMED CARES AT 0700. PT IN CHAIR, SLEEPY. ORIENTED TO PERSON, PLACE AND SITUATION. FORGETFUL. VERY TIRED THIS AM, EASILY AROUSABLE. TRACHEOSTOMY PATENT, NO SECRETIONS/ DRAINAGE NOTED. PT HAS A SLIGHT COUGH THIS AM. LS CLEAR, SATS >93% ON RA. HS STABLE, PEDAL PULSES 1+, NON-PITTING EDEMA IN BLE, TEDHOSE ORDERED. BS ACTIVE *4, ABDOMEN SOFT AND DISTENDED, LAST BM 11/22. ABDOMINAL INCISION REMAINS DRY AND INTACT, PT DENIES PAIN AROUND INCISION. PT SLEEPING BETWEEN THERAPY. UP WITH 1 SBA, GAITBELT AND WALKER. Q1H VISUAL CHECKS. CALL LIGHT WITHIN REACH. FALL PRECAUTIONS IN PLACE
--- NOTE | 2018-11-23 13:05 | NUR ---
team meeting recommendation: master 12/01, hh ( pt, ot, nursing). no dme needed. pt has fww. have son and daughter in law for support as well
[2018-11-23 19:25] VITALS: BP 86/48
--- NOTE | 2018-11-24 03:39 | NUR ---
ASSUMED CARE OF PT AT 0715. PT IS A&OX4 AND VITAL SIGNS ARE STABLE. PT TOLERATED PO MEDICATIONS WHOLE WITH THIN LIQUIDS. TRANSFERS WITH SBA USING GAIT BELT AND WALKER. ACCU CHECKS ACHS, NYSTATIN SWISH AND SPIT FOR ORAL THRUSH. BRUISING TO ABDOMEN AND LEFT SIDE. [place] DRESSING TO LOWER ABDOMEN IS C/D/I. TRACHEOSTOMY IS WITHOUT DRAINAGE OR SECREATIONS. FALL PRECAUTIONS IN PLACE AND NURSING WILL CONTINUE TO MONITOR.
[2018-11-24 07:50] VITALS: BP 136/74
--- NOTE | 2018-11-24 11:07 | NUR ---
Son Lux here today with questions regarding the pt's progress, dc plan and potential care needs at dc. Pt's spouse is at home on hospice and needs 24hr supervision and assistance. Lux and his have been staying with her while the pt is in the hospital. Private duty resources and lifeline systems discussed. Senior Blue Book to be left in the pt's room. Lux will also contact the hospice VETERANS' COUNSELOR for recommendations on private duty. The pt has 6 steps up to his bedroom and bathroom. He will need to be indep with his gait,transfers and adl's to return home. They have the hh listing to review. The pt has needed dme in the home. The pt's is living in the living room so she can stay on the main level. She is in bed most of the time and only up to the BSC with assist. Support provided. Lux will try to be here next Thursday after team conf to confirm pt's progress and plan for dc home with hh on 12/01/18.
--- NOTE | 2018-11-24 12:59 | NUR ---
Pt in bed resting without c/o.Assessment completed.vss.Pt refused breakfast but took meds with juice and took few bite of scamble egg.Therapist bath pt this am and later ambulated in hallways with assist.Dr Brewer here,order noted.Pt refused going to food court with group for lunch.director of clinical services called and pt will be serve lunch in his room.Will continue to monitor.
[2018-11-24 19:50] VITALS: BP 119/53
[2018-11-25 05:52] LABS: POTASSIUM 3.3 mmol/L (3.5-5.1)
[2018-11-25 07:30] VITALS: BP 134/78
[2018-11-25 08:48] VITALS: BP 158/82
--- NOTE | 2018-11-25 17:02 | NUR ---
Assumed care approx. 0700 this AM. Patient oriented x4. Patient using trach mask on 14L as needed for comfort and when short of breath. Bilateral ankle edema noted. Patient should work on nutritional intake, although he did consume 100% of supplement this afternoon. Patient was able to put clothes on and use the bathroom this morning with a walker. Patient refused to washen self up today with therapy. Patient in chair much of the day, and called out appropriately when needing to use the restroom. Patient progressing toward plan of care goals.
[2018-11-25 19:25] VITALS: BP 153/55
--- NOTE | 2018-11-26 01:34 | NUR ---
Care assumed of patient at 1915: Patient alert and oriented x4 with occasional forgetfulness. Patient joking, laughing this shift. Patient calm and cooperative. Took HS medications without difficulty. Patient has preferred to sleep in recliner this shift. Bilateral lower extremities elevated with pillow and recliner foot rest. Patient up with FWW and gait belt. Patient has chair alarm in place. Patient has been impulsive and getting up without using call light. Patient educated x2 to utilize call light before standing, ambulating or completing ADLs. O2 has remained 94% on room air this shift. Respirations even and unlabored. Patient declines needing trach collar O2 at this time. No s/s of distress. Denies pain or discomfort. Patient resting quietly in recliner at this time.
[2018-11-26 07:30] VITALS: BP 135/81
--- NOTE | 2018-11-26 13:18 | NUR ---
ASSUMED CARE OF PT AT 0715. REPORTS SLEPT FAIR LAST NIGHT. PT IS A&OX4 ABLE TO VOICE HIS NEEDS. VITAL SIGNS ARE STABLE. PT TOLERATED PO MEDICATIONS WHOLE WITH THIN LIQUIDS. PT HAS BEEN UP WITH THERAPISTS AND PARTICIPATES WELL. TRANSFERS WITH SBA USING GAIT BELT AND WALKER. NYSTATIN SWISH AND SWALLOWED FOR ORAL THRUSH. BRUISING TO ABDOMEN AND LEFT SIDE. STERI STRIPS ON INCISION, DRY AND INTACT, NO SIGNS OF INFECTION. DENIES PAIN AND HAS NO CONCERN AT THIS MOMENT. TRACHEOSTOMY IS WITHOUT DRAINAGE OR SECRETIONS. USE HUMILIFIED PRN. DENIES SOB. OFFERED SUPPORTIVE CARE. MEDS, EYE DROPS GIVEN ORDERED. REASSESSMENT PER CHART. LABS REVIEWED.FALL PRECAUTIONS IN PLACE NURSING WILL CONTINUE TO MONITOR. PT IS RESTING IN RECLINER AT THIS MOMENT. EDEMA 1+ ON BOTH ANKLES, ENCOURAGED PT TO ELEVATE BLE UP.
[2018-11-26 19:57] VITALS: BP 128/50
--- NOTE | 2018-11-27 03:33 | NUR ---
ASSUMED CARE OF PT [id number]. PT IS A&OX4 AND VITAL SIGNS ARE STABLE. PT DENIES PAIN, EDEMA +2 IN BILATERAL ANKLES AND ENCOURAGED TO ELEVATE BLE. ABDOMINAL SURGICAL SITE WELL APPROXIMATED AND STERI STRIPS C/D/I. REFUSED 0000 NYSTATIN MOUTHWASH. CALLS APPROPRIATELY, FALL PRECAUTIONS IN PLACE AND NURSING WILL CONTINUE TO MONITOR.
[2018-11-27 09:42] VITALS: BP 110/51
[2018-11-27 16:06] VITALS: BP 141/80
--- NOTE | 2018-11-27 18:40 | NUR ---
ASSUMED CARE AT APPROX 0715. PATIENT A/O X4 ABLE TO VOICE HIS NEEDS. DIFFICULT TO UNDERSTAND AT TIMES. TRACHEOSTOMY NO SPEAKING VALVE. HUMILIFY USING PRN. PATIENT PROVIDES OWN CARES FOR STOMA, REFUSED MOIST AIR MASK TO NECK. PARTICIPATED IN THERAPY. C/O GENERALIZED PAIN THIS AM. PRN TYLENOL GIVEN AND PAIN SUBSIZED. LOWERING ABDOMINAL INCISION APPROXIMATED, STERI-STRIPS IN PLACE. NO DRAINAGE NOTED FALL PRECAUTIONS IN PLACE. CALL LIGHT WITHIN REACH. CALL APPROPRIATELY FOR TOILETING. ABLE TO DO HIS OWN HYGIENE SAFETY. STILL HAS POOR APPETITE. OFFERED SNACK IN BETWEEN. WILL GIVE REPORT TO NIGHT NURSE TO CONTINUE TO MONITOR.
[2018-11-27 19:50] VITALS: BP 152/61
--- NOTE | 2018-11-28 03:36 | NUR ---
RECEIVED REPORT FROM OFFGOING DAY NURSE, ASSUMED CARE @ 2302 ON 11/27/18. PATIENT A&O X 3 WITH COFUSION NOTED. PLEASANT AFFECT, ABLE TO VOICE NEEDS. SEATED IN RECLINER, BILATERAL LOWER EXTREMITIES ELEVATED, CHAIR ALARM ACTIVATED. IS IMPULSIVE AND GETS UP WITHOUT USING CALL LIGHT. EDUCATION PROVIDED X4 TO USE CALL LIGHT BEFOE AMBULATING. ABD SURGICAL INCISION SITE HAS NOTED BRUISING, WELL APROXIMATED AND STERI STRIPS ARE INTACT. PRN TYLENOL PROVIDED FOR ABD POST SURGICAL PAIN. PARTIAL RELIEF NOTED. TOOK MEDS WHOLE WITH WATER. SLEPT IN HIS BED FOR PART OF THE NIGHT, AND AFTER TOILETING IN THE NIGHT RETURNED TO RECLINER WITH THE FEET ELEVATED FOR REMAINDER OF THE NOC. CALL LIGHT WITHIN REACH HOURLY ROUNDING FOR PATIENT SAFETY.
[2018-11-28 09:18] VITALS: BP 136/66
--- NOTE | 2018-11-28 12:55 | NUR ---
ASSUMED CARE OF PT AT 0715. PT IS A&OX4 AND VITAL SIGNS ARE STABLE. PT TOLERATED PO MEDICAIOTNS THIS MORNING WHOLE WITH THIN LIQUIDS. DENIES PAIN AT THIS TIME. SURGICAL INCISION TO ABDOMEN WELL APPROXIMTED, STERISTRIPS IN PLACE. SON AT BEDSIDE THIS MORNING. TRACHEOSTOMY STOMA PATENT, PT MANAGES STOMA CARE, PRN MASK WITH HUMIDITY. FALL PRECAUTIONS IN PLACE AND NURSING WILL CONTINUE TO MONITOR.
[2018-11-28 19:30] VITALS: BP 130/64
--- NOTE | 2018-11-29 02:14 | NUR ---
PATIENT ASSESSED AND IS ALERT X 4. SKIN WARM AND DRY. RESP EVEN AND UNLABORED. IP TO ASSIST STANDBY ASSIST. IS STEADY ON HIS FEET. NO WOUNDS NOTED. HAS SOME EDEMA NOTED IN ANKLES BILATERAL 2+ AND 1+ ON RIGHT HAND. HAS AN ABDOMINAL INCISION THAT HAS STERI-STRIPS AND NO DRAINAGE NOTED. HEALING WELL. PAIN MEDICATION TAKEN WITH GOOD RELIEF. SLEEPS IN HIS CLOTHES PER HIS REQUEST. STOMA HEALED FROM TRACH. REFUSES HIS ENSURES. WILL BE MONITOR HIS AAA. NO IV TAKEN. UP TO BATHROOM WITH STAND BY ASSIST X 1 PERSON. HAS A POOR APPETITE. TAKING DIET WELL. VS STABLE. NO CODE. HAD A BM YESTERDAY. PAIN MEDICATION GIVEN WITH GOOD RELIEF. CONT PLAN OF CARE.
[2018-11-29 08:05] VITALS: BP 142/74
--- NOTE | 2018-11-29 13:42 | NUR ---
call from pt son janelle rt question about hh, how often they be at the home. when can drive again. education on hh, and follow up with pcp dr marin to be cleared for driving prior to. " [facility] is who we want to use for [facility] thank you"/janelle. referral to be sent to [facility], still anticipating on 12/01/18
--- NOTE | 2018-11-29 14:00 | NUR ---
SAMIR sent HH referral to [facility]
--- NOTE | 2018-11-29 18:29 | NUR ---
ASSUMED CARE OF PT AT 0715. PT IS A&OX4 AND VITAL SIGNS ARE STABLE. PT/OT/ST AGREED WITH NURSING THAT PT IS SAFE TO BE MADE MOD I IN ROOM WITH WALKER, ORDERS RECEIVED FROM PHYSICIAN. TOLERATED PO MEDICATIONS WHOLE WITH THIN LIQUIDS. SURGICAL INCISION TO LOWER ABDOMEN IS WELL APPROXIMATED AND STERI STRIPS ARE C/D/I. REFUSED ENSURE DRINKS AT MEALS, NURSE TALKED TO [facility] TECHNICIAN ABOUT CONCERNS WITH SUPPLEMENTS. NURSING WILL CONTINUE TO ENCOURAGE PT TO EAT MORE AT MEALS. FALL PRECAUTIONS IN [place]CE AND NURSING WILL CONTINUE TO MONITOR.
[2018-11-29 20:05] VITALS: BP 150/50
--- NOTE | 2018-11-30 01:06 | NUR ---
ASSESSMENT: PT REMAIN ALERT AND ORIENT TIMES FOUR. DENIES PAIN, SOB AND N/V. UP AD NANCY WITHOUT DIFFICULTY. MOD I CURRENTLY. GOOD PROGRESS TOWARDS DC GOALS. WILL CONTINUE TO MONITOR.
[2018-11-30 05:56] LABS: HEMATOCRIT 33.6 % (42.0-52.0); MCH 31.4 pg (26.0-34.0); MCHC 32.7 g/dL (28.0-37.0); RBC 3.5 mil/uL (4.50-6.00); WBC 3.4 thou/uL (4.0-11.0)
[2018-11-30 06:07] LABS: CALCIUM 8.3 mg/dL (8.5-10.1); CREATININE 1.1 mg/dL (0.7-1.3); POTASSIUM 3.4 mmol/L (3.5-5.1)
[2018-11-30 07:45] VITALS: BP 151/53
--- NOTE | 2018-11-30 13:34 | NUR ---
team meeting, recommendation : pt mod I in room. dc 12/01, no driving till following up with surgery and pcp, [facility] ( pt, ot, st and nursing). no dme needs, pt has fww. pt has open tracheostomy.
[2018-11-30 19:09] VITALS: BP 136/78
--- NOTE | 2018-11-30 20:51 | NUR ---
ASSUMED CARE OF PT AT 0715. PT IS A&OX4 AND VITALS ARE STABLE. PARTICIPATED IN SCHEDULED THERAPIES. TOLERATED PO MEDICAITONS WHOLE WITH THIN LIQUIDS. MOD I IN ROOM WITH WALKER. PT EDUCATED ABOUT DIETARY NEEDS IN HEALTH MANAGEMENT DUE TO POOR APPETITE. PT STATES THAT EVERYTHING TASTES THE SAME. SUGGESTED TO PT THAT HE CONSUME FOODS HIGHER IN CALORIES AND PROTEIN WHEN POSSIBLE. TRACH STOMA PATENT AND CARE MANAGED BY PT. FALL PRECAUTIONS IN PLACE AND NURSING WILL CONTINUE TO MONITOR.
[2018-11-30] MEDS ORDERED: CARDURA4 MG PO (23:05)
[2018-11-30] MEDS ORDERED: TYLENOL EXTRA500 MG PO (23:06)
[2018-11-30] MEDS ORDERED: K-DUR 20 MEQ T20 MEQ PO (23:07)
[2018-11-30] MEDS ORDERED: BRIMONIDINE TART5 ML OPHTHALMIC (23:08)
[2018-11-30] MEDS ORDERED: TIMOLOL MALEATE5 M1 OPHTHALMIC (23:09)
--- NOTE | 2018-12-01 03:48 | NUR ---
ASSESSMENT: PT REMAIN ALERT AND ORIENT TIMES FOUR. MOD I WITH WALKERIN ROOM. VSS, AFEBRILE. DR. HILL WROTE ORDERS TO DC PATIENT AT 1300 ON 12/01/18. GOOD PROGRESS TOWARDS DC GOALS, WILL CONTINUE TO MONITOR.
--- NOTE | 2018-12-01 07:50 | NUR ---
ASSUMED CARE AT 0700. PATIENT IS ALERT AND ORIENTED. PATIENT KUHN'S , FRAME WELDER CARGO UTILITY TRAILERS ARE EQUAL. LUNGS ARE CLEAR AND DEMINISHED. NO HUMIDIFIED AIR TO STOMA. ABD IS SOFT WITH BSX4. ABD STERI STRIPS INTACT. PATIENT IS MOD/I IN ROOM WITH HIS WALKER. FALL AND SAFETY PROTOCOLS IN PLACE. DENIES ANY PAIN AT THIS TIME. CONTINUES TO PROGRESS TOWARDS D/C GOALS. PLAN IS FOR D/C TO HOME WITH SON TODAY AFTER 1 PM. WILL CONTINUE TO MONITER.
[2018-12-01 08:00] VITALS: BP 147/71
[2018-12-01 09:35] VITALS: BP 147/71
--- NOTE | 2018-12-01 10:42 | NUR ---
DISCHARGE ORDERS COMPLETED. PATIENT DISCHARGING TO HOME WITH [facility]. DISCHARGE/HOME HEALTH ORDERS FAXED TO [facility]. CALL PLACED TO [facility] TO NOTIFY. [facility] TO FACILITATE PATIENTS HOME HEALTH IN [facility] SERVICES. UNIT CM AWARE.
--- NOTE | 2018-12-01 12:39 | NUR ---
PATIENT AND SON GIVEN D/C INSTRUCTIONS. PATENT VERBALIZED UNDERSTANDING OF INSTRUCTIONS. PATIENT D/C'D TO HOME VIA W/C . PATIENT LEFT UNIT IN GOOD CONDITION WITH ALL OF HIS BELONGINGS, AND D/C INSTRUCTINS. SCRIPTS CALLED INTO [facility].
--- NOTE | 2018-12-03 15:16 | H ---
[facility] [place] [address] HISTORY AND PHYSICAL Name: SWETHA HART Ryan Room #: 515-P [facility] IN .R.#: [id number] Admission: 11/21/18 ������������������ Attend Phys: Reg Pierre MD Discharge: 12/01/18 ������������������ Date of : 34 Report #: [id number] THIS REPORT FOR: //name// CC: Reg Brewer DATE OF SERVICE: 11/21/2018 HISTORY AND PHYSICAL/POSTADMISSION PHYSICIAN EVALUATION HISTORY OF PRESENT ILLNESS: The patient is an 83-year-old white male who was originally admitted on 11/09/2018 with vomiting x 4 days. Noted to have a small-bowel obstruction with ventral hernia. He also had a bladder outlet obstruction. He was noted to have an incarcerated large umbilical hernia with small-bowel obstruction and underwent laparoscopic repair on 11/11/2018 with lysis of adhesions. His course was complicated by sepsis and acute renal insufficiency. He had an extensive ecchymosis over his left-sided abdominal wall and left hip and thigh. He was noted to have acute hypoxic respiratory failure. He was diagnosed with medical complexity with generalized debilitation. He started on Flomax for his bladder outlet obstruction noted to improve with last PVR being low. Encouraging supplements with his malnutrition. As far as his hypoxemia, he has been off supplemental oxygen. He has now been admitted for acute in-hospital inpatient rehabilitation. PAST MEDICAL HISTORY: Includes laryngeal squamous cell CA, status post laryngectomy in 1963, history of obesity, BPH, glaucoma, hyperlipidemia, back surgery, greater than 10 years ago, and right knee arthroscopy. MEDICATIONS: Please see the full medication listing as noted. This includes vitamins, herbals, and supplements per report. ALLERGIES: No known drug allergies. SOCIAL HISTORY: Retired, lives with who is currently on hospice. There is an involved son and eztagsan-hz-hui. The mafkwdof-pb-sqq is currently staying with his . They live in a split level house, 3 steps in, 12 inside. The patient premorbidly was ambulatory without gait aids. REVIEW OF SYSTEMS: No current complaints of chest pain, shortness of breath, or abdominal discomfort. He does have generalized weakness. He has the chronic laryngectomy. FAMILY HISTORY: Significant for longevity and hypertension. PHYSICAL EXAMINATION: GENERAL: He is a pleasant, obese an 83-year-old white male in no [address] [address] HISTORY AND PHYSICAL Name: SWETHA HART Room #: 515-P [facility] IN ..#: [id number] Admission: 11/21/18 ������������������ Attend Phys: Reg Pierre MD Discharge: 12/01/18 ������������������ Date of : 34 Report #: [id number] distress. VITAL SIGNS: Last recorded temperature 98.5, pulse 64, respirations 16, blood pressure 117/59. The patient is alert. He is pleasant. HEENT: Appeared to be benign. He has the chronic laryngectomy with opem tracheostomy. He is able to verbalize short statements. He appears appropriate. CHEST: Sounded clear, some decreased breath sounds throughout. CARDIOVASCULAR: Regular rate and rhythm. ABDOMEN: Extensive abdominal ecchymosis over the lower abdomen as well as over the left lateral hip and thigh. Incision appears to be intact. Bowel sounds were positive. He has some mild diffuse tenderness. EXTREMITIES: He has functional range of motion of both upper extremities. Strength is grade 4-/5. DTRs are trace to 1. Lower extremities, tone appeared to be intact. Strength is grade 4- to 3+/5. DTRs are trace to 1. He is min assist with sit to stand. He has ambulated short distances up to 15 feet prior to his rehabilitation admission. This has been with a front wheeled walker, min assist. ASSESSMENT: An 83-year-old white male with the following problem list: 1. Medical complexity with generalized debilitation. 2. Sepsis. 3. Small-bowel obstruction with incarcerated large umbilical hernia, status post laparoscopic repair, 11/11/2018. 4. Acute renal insufficiency. 5. Acute hypoxic respiratory failure, which has improved. 6. Bladder outlet obstruction. 7. Large left lateral abdominal wall hematoma. 8. Laryngeal squamous cell cancer with past laryngectomy. He has an open tracheostomy. 9. Obesity. 10. Osteoarthritis. 11. Benign prostatic hypertrophy. 12. Past history of back surgery. 13. Arthroscopy, right knee. PLAN: The patient is admitted for acute in-hospital inpatient rehabilitation. From a postadmission physician evaluation perspective, there are no relevant changes since the preadmission screening. Please see the above review of prior and current medical and functional conditions and comorbidities. Please see the patient's previous and current functional status. As far as risk of complications, the patient has multiple medical comorbidities as noted above. Initial plan of care involves the interdisciplinary acute inpatient rehabilitation program with goal of maximizing the patient's functional independence, so he can hopefully return back to his prior living situation. Measurable functional goals would be for the patient to become modified [facility] [address] [place] [address] HISTORY AND PHYSICAL Name: SWETHA HART Room #: 515-P DIS IN M.R.#: [id number] Admission: 11/21/18 ������������������ Attend Phys: Reg Pierre MD Discharge: 12/01/18 ������������������ Date of : 34 Report #: [id number] independent with transfers, mobility, ADLs, so he can return back to the home setting. Prognosis is reasonably good with estimated length of stay probably at least 7-14 days pending progress. Potential barriers would include his multiple medical comorbidities and decreased functional status. ��������������������������������������������� <ELECTRONICALLY SIGNED> ���������������������������������������� By: Reg Pierre MD ��������������������������������������������� 12/03/18 1516 1030 1150 Reg Pierre MD /nt
--- NOTE | 2018-12-03 15:16 | PLAN ---
[facility] [place] [address] [place] [address] REHAB UNIT PLAN OF CARE Name: TANNERSWETHA Davis Room #: 515-P DIS IN M.R.#: [id number] Admission: 11/21/18 ������������������ Attend Phys: Reg Pierre MD Discharge: 12/01/18 ������������������ Date of : 34 Report #: [id number] THIS REPORT FOR: //name// CC: Reg Brewer DATE OF SERVICE: 11/24/2018 SUBJECTIVE: The patient is seen back today in followup. He is pleasant, in no distress. Last recorded temperature 36.6, pulse 76, respirations 24, blood pressure 86/48. Transfers are standby assistance with gait 175 feet front-wheeled walker. In occupational therapy, lower body dressing is min assist. ASSESSMENT: 1. Medical complex with generalized debilitation. 2. Sepsis. 3. Small-bowel obstruction with incarcerated large umbilical hernia, status post laparoscopic repair on 11/11/2018. 4. Acute renal insufficiency. 5. Acute hypoxic respiratory failure, which improved. 6. Bladder outlet obstruction. 7. Large left lateral abdominal wall hematoma. 8. Laryngeal squamous cell cancer with past laryngectomy. 9. Obesity. 10. Osteoarthritis. 11. Benign prostatic hypertrophy. 12. Past history of back surgery. 13. Right shoulder arthroscopy, right knee. PLAN: The overall plan of care is based on the preadmission screen, post-admission physician evaluation and information garnered from therapy assessments. 1. Estimated length of stay is for him to be discharged next Thursday, on 12/01/2018. 2. Medical prognosis is reasonably good. 3. Anticipated interventions includes the interdisciplinary acute inpatient rehabilitation program. 4. Anticipated functional outcomes would be for the patient to become ambulatory and become modified independent at least at the walker level versus cane level to return back to the home setting. He is to be independent with mobility and ADLs. 5. Discharge destination would be back to the home setting where he lives with and family are currently there assisting . 6. Expected therapy by discipline includes PT and OT 1-1/2 hours per day each five days a week throughout the duration of the acute inpatient rehabilitation [address] [address] REHAB UNIT PLAN OF CARE Name: SWETHA HART Room #: 515-P DIS IN .R.#: [id number] Admission: 11/21/18 ������������������ Attend Phys: Reg Pierre MD Discharge: 12/01/18 ������������������ Date of : 34 Report #: [id number] stay. Speech therapy has also been added to evaluate cognition and communication. At this point, would have PT, OT and speech 1 hour per day each five days a week throughout the duration of the acute inpatient rehabilitation stay, but we may be able to taper depending upon how he does. ��������������������������������������������� <ELECTRONICALLY SIGNED> ���������������������������������������� By: Reg Pierre MD ��������������������������������������������� 12/03/18 1516 0937 1450 Reg Pierre MD /nt
== END 2018-12-01 12:49 | disposition home health service (06) | DRG 393 ==
LOC: ENTRNSPT 12-01 12:38 → EDTRNSPTSTS 12-01 12:41
PROVIDERS: Internal Medicine; ADMIT Physical Medicine & Rehabilitation
DX: K42.0 Umbilical hernia with obstruction, without gangrene (principal); A41.9 Sepsis, unspecified organism; J96.01 Acute respiratory failure with hypoxia; E46 Unspecified protein-calorie malnutrition; M96.840 Postprocedural hematoma of a musculoskeletal structure following a musculoskeletal system procedure; N17.9 Acute kidney failure, unspecified; K43.6 Other and unspecified ventral hernia with obstruction, without gangrene; N32.0 Bladder-neck obstruction; E66.9 Obesity, unspecified; M19.90 Unspecified osteoarthritis, unspecified site; N40.0 Benign prostatic hyperplasia without lower urinary tract symptoms; Z68.39 Body mass index [BMI] 39.0-39.9, adult; E87.6 Hypokalemia; N28.9 Disorder of kidney and ureter, unspecified; E78.5 Hyperlipidemia, unspecified; R53.81 Other malaise; B37.9 Candidiasis, unspecified; Y83.8 Other surgical procedures as the cause of abnormal reaction of the patient, or of later complication, without mention of misadventure at the time of the procedure; Y82.8 Other medical devices associated with adverse incidents; Z85.21 Personal history of malignant neoplasm of larynx; Z82.49 Family history of ischemic heart disease and other diseases of the circulatory system; Z68.38 Body mass index [BMI] 38.0-38.9, adult
CPT/HCPCS: 10112